=== PATIENT | female | born 1990 | race Two or more races ===

== ENCOUNTER 2018-02-13 13:27 | Inpatient (IN) | payer SELFPAY ==
[~2018-02-13] VITALS: Ht 152.4 cm; Wt 51.7 kg
--- NOTE | 2018-02-13 13:43 | Emergency Room Report ---
History of Present Illness General Chief Complaint: Abdominal Pain Source: Patient (Ramin Mascorro MD) Present Illness HPI Patient is a 27-year-old female who presented after increased epigastric abdominal pain since his morning. Patient reports having a prior history of gastritis. She reports having increased vomiting.She reports having a control implant. She denies any hematemesis or bloody stools. She reports having increased constipation.She denies recent alcohol use.The patient denies prior surgery.The patient is describes a burning sensation. (Ramin Mascorro MD) Allergies: Coded Allergies: No Known Allergies (Unverified , 02/13/18) Patient History Past Medical History: see triage record Now: No Reviewed Nursing Documentation: PMH: Agreed; PSxH: Agreed (Ramin Mascorro MD) Nursing Documentation-PMH Hx Gastrointestinal Problems: Yes - Gastritis (Ramin Mascorro MD) Review of Systems All Other Systems: negative except mentioned in HPI (Ramin Mascorro MD) Physical Exam Vital Signs Date Time Temp Pulse Resp B/P (MAP) Pulse Ox O2 Delivery O2 Flow Rate FiO2 02/13/18 13:31 97.5 72 20 121/76 98 Room Air Sp02 EP Interpretation: reviewed, normal General Appearance: normal inspection, alert, GCS 15, mild distress Head: atraumatic Eyes: bilateral eye PERRL ENT: normal ENT inspection, hearing grossly normal, normal voice Neck: normal inspection, full range of motion, supple, no bony tend Respiratory: normal inspection, lungs clear, normal breath sounds, no respiratory distress, no retraction, no wheezing Cardiovascular #1: regular rate, rhythm, no edema Gastrointestinal: normal inspection, normal bowel sounds, soft, no guarding, no hernia, tenderness - epigastric Genitourinary: no CVA tenderness Musculoskeletal: normal inspection, back normal, normal range of motion Neurologic: normal inspection, alert, responsive, speech normal Psychiatric: normal inspection, judgement/insight normal, mood/affect normal Skin: normal inspection, normal color, no rash (Ramin Mascorro MD) Medical Decision Making Diagnostic Impression: Primary Impression: Biliary colic Additional Impression: Cholelithiasis ER Course Patient presented for abdominal pain. Differential diagnoses included ischemic bowel, appendicitis, perforated viscus, abdominal aortic aneurysm, inferior myocardial infarction, viral gastroenteritis. Because of complexity of patient' s case laboratory testing and imaging studies were ordered. The patient endorsed Dr. Tuttle pending laboratory testing and further disposition. (Ramin Mascorro MD) ER Course This patient was turned over to me from Dr. Mascorro. Please see his full history and physical. Patient presents with epigastric pain, nausea and vomiting. She was pending ultrasound of the right upper quadrant and laboratory studies. She was found to have multiple gallstones but no evidence of cholecystitis. The patient's pain remained pain un-controlled. After discussion with the patient she was very uncomfortable trying to go home as she states that her pain is severe and are bearable. She is admitted for pain control and monitoring and possible evaluation by general surgery. Laboratory Tests Test 02/13/18 14:08 02/13/18 17:33 White Blood Count 15.9 K/UL (4.8-10.8) H Red Blood Count 5.49 M/UL (4.20-5.40) H Hemoglobin 15.9 G/DL (12.0-16.0) Hematocrit 47.5 % (37.0-47.0) H Mean Corpuscular Volume 87 FL (80-99) Mean Corpuscular Hemoglobin 29.1 PG (27.0-31.0) Mean Corpuscular Hemoglobin Concent 33.6 G/DL (32.0-36.0) Red Cell Distribution Width 10.7 % (11.6-14.8) L Platelet Count 255 K/UL (150-450) Mean Platelet Volume 7.6 FL (6.5-10.1) Neutrophils (%) (Auto) 84.1 % (45.0-75.0) H Lymphocytes (%) (Auto) 11.4 % (20.0-45.0) L Monocytes (%) (Auto) 3.8 % (1.0-10.0) Eosinophils (%) (Auto) 0.2 % (0.0-3.0) Basophils (%) (Auto) 0.6 % (0.0-2.0) Sodium Level 137 MMOL/L (136-145) Potassium Level 5.3 MMOL/L (3.5-5.1) H Chloride Level 102 MMOL/L (98-107) Carbon Dioxide Level 23 MMOL/L (21-32) Anion Gap 12 mmol/L (5-15) Blood Urea Nitrogen 11 mg/dL (7-18) Creatinine 0.7 MG/DL (0.55-1.30) Estimate Glomerular Filtration Rate > 60 mL/min (>60) Glucose Level 104 MG/DL (74-106) Calcium Level 9.6 MG/DL (8.5-10.1) Total Bilirubin 0.8 MG/DL (0.2-1.0) Aspartate Amino Transferase (AST) 42 U/L (15-37) H Alanine Aminotransferase (ALT) 28 U/L (12-78) Alkaline Phosphatase 84 U/L (46-116) Total Protein 9.0 G/DL (6.4-8.2) H Albumin 4.4 G/DL (3.4-5.0) Globulin 4.6 g/dL Albumin/Globulin Ratio 1.0 (1.0-2.7) Lipase 104 U/L (73-393) Human Chorionic Gonadotropin, Qual Negative (NEGATIVE) Urine Color Yellow Urine Appearance Slightly cloudy Urine pH 7 (4.5-8.0) Urine Specific [place] 1.015 (1.005-1.035) Urine Protein 2+ (NEGATIVE) H Urine Glucose (UA) Negative (NEGATIVE) Urine Ketones 4+ (NEGATIVE) H Urine Blood 1+ (NEGATIVE) H Urine Nitrite Negative (NEGATIVE) Urine Bilirubin Negative (NEGATIVE) Urine Urobilinogen Normal MG/DL (0.0-1.0) Urine Leukocyte Esterase 1+ (NEGATIVE) H Urine RBC Pending Urine WBC Pending Urine Squamous Epithelial Cells Pending Urine Bacteria Pending Urine HCG, Qualitative Negative (NEGATIVE) Urine Opiates Screen Positive (NEGATIVE) H Urine Barbiturates Screen Negative (NEGATIVE) Phencyclidine (PCP) Screen Negative (NEGATIVE) Urine Amphetamines Screen Negative (NEGATIVE) Urine Benzodiazepines Screen Negative (NEGATIVE) Urine Cocaine Screen Negative (NEGATIVE) Urine Marijuana (THC) Screen Positive (NEGATIVE) H ([facility]) Last Vital Signs Date Time Temp Pulse Resp B/P (MAP) Pulse Ox O2 Delivery O2 Flow Rate FiO2 02/13/18 13:31 97.5 72 20 121/76 98 Room Air (Ramin Mascorro MD) Disposition: ADMITTED INPATIENT Condition: Stable Ramin Mascorro MD Feb 13, 2018 13:43 [facility] Feb 13, 2018 18:42
[2018-02-13] MEDS ORDERED: Morphine Sulfate 4mg/ml Inj (IV/IM USE ONLY) IVP ONE (14:00)
[2018-02-13 14:20] LABS: BASOPHILS % (AUTO) 0.6 % (0.0-2.0); EOSINOPHILS % (AUTO) 0.2 % (0.0-3.0); HEMATOCRIT 47.5 % (37.0-47.0); HEMOGLOBIN 15.9 G/DL (12.0-16.0); LYMPHOCYTES % (AUTO) 11.4 % (20.0-45.0); MEAN CORPUSCULAR VOLUME 87 FL (80-99); MONOCYTES % (AUTO) 3.8 % (1.0-10.0); NEUTROPHILS % (AUTO) 84.1 % (45.0-75.0); PLATELET COUNT 255 K/UL (150-450); RED BLOOD COUNT 5.49 M/UL (4.20-5.40); RED CELL DISTRIBUTION WIDTH 10.7 % (11.6-14.8); WHITE BLOOD COUNT 15.9 K/UL (4.8-10.8)
[2018-02-13 14:26] LABS: ANION GAP 12 mmol/L (5-15); BLOOD UREA NITROGEN 11 mg/dL (7-18); CALCIUM 9.6 MG/DL (8.5-10.1); CARBON DIOXIDE 23 MMOL/L (21-32); CHLORIDE 102 MMOL/L (98-107); CREATININE 0.7 MG/DL (0.55-1.30); POTASSIUM 5.3 MMOL/L (3.5-5.1); SODIUM 137 MMOL/L (136-145)
[2018-02-13 14:32] LABS: ALANINE AMINOTRANSFERASE 28 U/L (12-78); ALBUMIN 4.4 G/DL (3.4-5.0); ALKALINE PHOSPHATASE 84 U/L (46-116); ASPARTATE AMINO TRANSFERASE 42 U/L (15-37); BILIRUBIN,TOTAL 0.8 MG/DL (0.2-1.0)
--- NOTE | 2018-02-13 15:06 | Diagnostic Imaging Report ---
Indication: Epigastric pain and vomiting Technique: Juarez-scale and duplex images of the upper abdomen were obtained. Doppler interrogation of the hepatic vessels Comparison: none Findings: Gallbladder demonstrates gallstones. No wall thickening or pericholecystic fluid. Sonographic Luna's sign is indeterminate due to pain being diffuse. Common bile duct measures 3 mm in diameter. No intrahepatic biliary ductal dilatation. Liver demonstrates normal echogenicity, no focal abnormality. Portal vein and hepatic veins are patent. Pancreas is unremarkable. Spleen is unremarkable. Left kidney measures 10.7 cm in length. Right kidney measures 10.5 cm length. Both kidneys demonstrate normal echogenicity. There is no hydronephrosis. No focal abnormality . Non-aneurysmal abdominal aorta . No free intraperitoneal fluid demonstrated Impression: Cholelithiasis Negative for dilated ducts or other acute or significant abnormality
[2018-02-13 15:43] VITALS: BP 121/76
[2018-02-13] MEDS ORDERED: Ketorolac 30mg Inj IV ONE (16:30)
--- NOTE | 2018-02-13 16:35 | Diagnostic Imaging Report ---
Indication: Increased epigastric abdominal pain since this morning, prior history of gastritis, increased vomiting Technique: Supine view of the abdomen Comparison: none Findings: Bowel gas pattern is unremarkable. No unusual masses or calcifications. Central metallic density presumably represents umbilical jewelry Impression: No acute process
[2018-02-13 17:48] VITALS: BP 115/72
[2018-02-13 18:24] LABS: APPEARANCE,URINE SLIGHTLY CLOUDY; BILIRUBIN, URINE NEGATIVE (NEGATIVE); GLUCOSE, URINE (UA) NEGATIVE (NEGATIVE); KETONES,URINE 4+ (NEGATIVE); LEUKOCYTE ESTERASE ,URINE 1+ (NEGATIVE); NITRITE,URINE NEGATIVE (NEGATIVE); PH,URINE 7 (4.5-8.0); PROTEIN,URINE 2+ (NEGATIVE); UROBILINOGEN,URINE NORMAL MG/DL (0.0-1.0)
[2018-02-13 18:26] LABS: COLOR,URINE YELLOW
[2018-02-13] MEDS ORDERED: PRILOSEC OTC20 MG ORAL (18:31)
[2018-02-13 18:47] VITALS: BP 107/61
[2018-02-13] MEDS ORDERED: ALKA-SELTZER O1 EAC1 PO (19:15)
[2018-02-13 19:33] VITALS: BP 103/69
[2018-02-13] MEDS ORDERED: Miralax 17gm pkt ORAL PRN (20:30)
[2018-02-13] MEDS ORDERED: Nitroglycerin Subl 0.4mg tab SL PRN (20:30)
[2018-02-13] MEDS ORDERED: Mylanta II UD 30ml ORAL PRN (20:30)
[2018-02-13] MEDS ORDERED: Morphine Sulfate 2mg/ml Inj IVP PRN (20:30)
[2018-02-13] MEDS ORDERED: LORazepam Inj 2mg/ml 1ml IV PRN (20:30)
[2018-02-13] MEDS ORDERED: Promethazine HCl 25 MG in NS 55 ML IV PRN (20:30)
[2018-02-13] MEDS ORDERED: Promethazine HCl 12.5 MG in NS 55 ML IV PRN (20:30)
[2018-02-13] MEDS: D5 1/2NS 1,000 ML IV SCH (21:39)
[2018-02-13] MEDS: Ketorolac 30mg Inj IV PRN (21:39)
[2018-02-13] MEDS: Heparin 5000 units/ml inj SUBQ SCH (21:46)
[2018-02-13 23:38] VITALS: BP 98/60
[2018-02-14] VITALS (13 sets, daily range): BP systolic 93–107; BP diastolic 50–63
[2018-02-14 06:41] LABS: HEMATOCRIT 39.8 % (37.0-47.0); HEMOGLOBIN 13.9 G/DL (12.0-16.0); MEAN CORPUSCULAR VOLUME 87 FL (80-99); PLATELET COUNT 217 K/UL (150-450); RED BLOOD COUNT 4.55 M/UL (4.20-5.40)
[2018-02-14 06:57] LABS: ALANINE AMINOTRANSFERASE 24 U/L (12-78); ALBUMIN 3.6 G/DL (3.4-5.0); ALBUMIN/GLOBULIN RATIO 0.9 (1.0-2.7); ALKALINE PHOSPHATASE 72 U/L (46-116); AMYLASE 33 U/L (25-115); ANION GAP 12 mmol/L (5-15); ASPARTATE AMINO TRANSFERASE 13 U/L (15-37); BILIRUBIN,TOTAL 1.1 MG/DL (0.2-1.0); BLOOD UREA NITROGEN 8 mg/dL (7-18); CALCIUM 8.8 MG/DL (8.5-10.1); CARBON DIOXIDE 22 MMOL/L (21-32); CHLORIDE 104 MMOL/L (98-107); CREATININE 0.7 MG/DL (0.55-1.30); SODIUM 138 MMOL/L (136-145)
[2018-02-14 06:58] LABS: BILIRUBIN,DIRECT 0.2 MG/DL (0.0-0.3)
[2018-02-14 07:01] LABS: WHITE BLOOD COUNT 23.9 K/UL (4.8-10.8)
[2018-02-14] MEDS: Heparin 5000 units/ml inj SUBQ SCH ×2 (08:33→20:34)
[2018-02-14] MEDS: Pantoprazole Inj IV SCH (09:30)
[2018-02-14] MEDS: cefTRIAXone 1 GM in D5W 55 ML IVPB SCH (09:30)
[2018-02-14] MEDS: D5 1/2NS 1,000 ML IV SCH ×2 (09:35→22:01)
[2018-02-14] MEDS ORDERED: Isovue-300 100ml vial INJ PRN (12:00)
--- NOTE | 2018-02-14 12:07 | Consultation ---
History of Present Illness General Date patient seen: Feb 14, 2018 Chief Complaint: Abdominal Pain Reason for Consultation: abdominal pain Present Illness HPI 27 year old female with no significant past medical history presented to ED with worsening abdominal pain and intermittent nausea. Patient states that holloween night she had In&Out prior to going to bed. Woke up the next morning with abdominal discomfort and went to work. Pain progressively worsened and associated with intermittent nausea but no emesis. Came to ED for evaluation. In ED noted to have leukocytosis and abdominal pain. Admitted for care and management. surgery called to evaluate. Pain described as generalized abdominal cramping that is 8/10 at max. normal bowel function. feels as if pain is "gas" at times. has been diagnosed with gastritis in past but does not take prescribed PPI. Has intermittent episodes of upper abdominal pain which she self treats with PPI/antacid temporarily. Does have history of biliary colic symptoms after fatty meals. ultrasound normal but does have cholelithiasis. hx of IUD placed in [facility]. +fevers Allergies: Coded Allergies: No Known Allergies (Unverified , 02/13/18) Medication History Scheduled Omeprazole Magnesium (Prilosec Otc), Unknown Dose ORAL DAILY, (Reported) Miscellaneous Medications Aspirin/Sod Bicarb/Citric Acid (Britta-Crabtree Original Tab Eff), 1 EACH PO, ( Reported) Patient History History Provided By: Patient, Medical Record Healthcare decision maker Resuscitation status Advanced Directive on File Past Medical/Surgical History Past Medical/Surgical History: (1) Abdominal pain (2) Cholelithiasis (3) Biliary colic (4) Gastritis Review of Systems All Other Systems: negative except mentioned in HPI Physical Exam General Appearance: no apparent distress, alert Lines, tubes and drains: peripheral HEENT: normocephalic, atraumatic Neck: supple, normal inspection Respiratory/Chest: normal breath sounds, no respiratory distress, no accessory muscle use Cardiovascular/Chest: normal peripheral pulses, normal rate Abdomen: normal bowel sounds, soft, no organomegaly, no mass, guarding, rebound , tender Extremities: normal inspection Skin Exam: warm/dry Neurologic: alert, oriented x 3 Last 24 Hour Vital Signs Date Time Temp Pulse Resp B/P (MAP) Pulse Ox O2 Delivery O2 Flow Rate FiO2 02/14/18 09:00 Room Air 02/14/18 08:00 98.7 80 21 102/60 (74) 95 02/14/18 06:00 99.1 82 18 95/63 (74) 100 02/14/18 04:07 100.0 02/14/18 04:07 100.0 02/14/18 03:37 101.3 104 18 100/60 (73) 100 02/13/18 23:38 99.7 78 18 98/60 (73) 100 02/13/18 23:10 Room Air 02/13/18 19:33 97.9 66 18 103/69 98 Room Air 02/13/18 18:47 96.5 74 19 107/61 97 Room Air 02/13/18 17:48 96.5 70 19 115/72 98 Room Air 02/13/18 16:59 97.6 02/13/18 15:43 97.6 68 20 121/76 98 Room Air 02/13/18 15:43 72 20 Room Air 02/13/18 14:53 97.6 02/13/18 13:31 97.5 72 20 121/76 98 Room Air Intake and Output 02/13/18 02/14/18 19:00 07:00 Intake Total 0 ml 600 ml Balance 0 ml 600 ml Intake Oral 0 ml Free Water 0 ml IV Total 0 ml 600 ml Tube Feeding 0 ml Blood Product 0 ml Other 0 ml # Voids 1 Laboratory Tests Test 02/13/18 14:08 02/13/18 17:33 02/14/18 05:10 White Blood Count 15.9 K/UL (4.8-10.8) H 23.9 K/UL (4.8-10.8) #*H Red Blood Count 5.49 M/UL (4.20-5.40) H 4.55 M/UL (4.20-5.40) Hemoglobin 15.9 G/DL (12.0-16.0) 13.9 G/DL (12.0-16.0) Hematocrit 47.5 % (37.0-47.0) H 39.8 % (37.0-47.0) Mean Corpuscular Volume 87 FL (80-99) 87 FL (80-99) Mean Corpuscular Hemoglobin 29.1 PG (27.0-31.0) 30.5 PG (27.0-31.0) Mean Corpuscular Hemoglobin Concent 33.6 G/DL (32.0-36.0) 34.9 G/DL (32.0-36.0) Red Cell Distribution Width 10.7 % (11.6-14.8) L 11.0 % (11.6-14.8) L Platelet Count 255 K/UL (150-450) 217 K/UL (150-450) Mean Platelet Volume 7.6 FL (6.5-10.1) 7.9 FL (6.5-10.1) Neutrophils (%) (Auto) 84.1 % (45.0-75.0) H % (45.0-75.0) Lymphocytes (%) (Auto) 11.4 % (20.0-45.0) L % (20.0-45.0) Monocytes (%) (Auto) 3.8 % (1.0-10.0) % (1.0-10.0) Eosinophils (%) (Auto) 0.2 % (0.0-3.0) % (0.0-3.0) Basophils (%) (Auto) 0.6 % (0.0-2.0) % (0.0-2.0) Sodium Level 137 MMOL/L (136-145) 138 MMOL/L (136-145) Potassium Level 5.3 MMOL/L (3.5-5.1) H 3.0 MMOL/L (3.5-5.1) L Chloride Level 102 MMOL/L (98-107) 104 MMOL/L (98-107) Carbon Dioxide Level 23 MMOL/L (21-32) 22 MMOL/L (21-32) Anion Gap 12 mmol/L (5-15) 12 mmol/L (5-15) Blood Urea Nitrogen 11 mg/dL (7-18) 8 mg/dL (7-18) Creatinine 0.7 MG/DL (0.55-1.30) 0.7 MG/DL (0.55-1.30) Estimat Glomerular Filtration Rate > 60 mL/min (>60) > 60 mL/min (>60) Glucose Level 104 MG/DL (74-106) 120 MG/DL (74-106) H Calcium Level 9.6 MG/DL (8.5-10.1) 8.8 MG/DL (8.5-10.1) Total Bilirubin 0.8 MG/DL (0.2-1.0) 1.1 MG/DL (0.2-1.0) H Aspartate Amino Transf (AST/SGOT) 42 U/L (15-37) H 13 U/L (15-37) L Alanine Aminotransferase (ALT/SGPT) 28 U/L (12-78) 24 U/L (12-78) Alkaline Phosphatase 84 U/L (46-116) 72 U/L (46-116) Total Protein 9.0 G/DL (6.4-8.2) H 7.4 G/DL (6.4-8.2) Albumin 4.4 G/DL (3.4-5.0) 3.6 G/DL (3.4-5.0) Globulin 4.6 g/dL 3.8 g/dL Albumin/Globulin Ratio 1.0 (1.0-2.7) 0.9 (1.0-2.7) L Lipase 104 U/L (73-393) 95 U/L (73-393) Human Chorionic Gonadotropin, Qual Negative (NEGATIVE) Urine Color Yellow Urine Appearance Slightly cloudy Urine pH 7 (4.5-8.0) Urine Specific [place] 1.015 (1.005-1.035) Urine Protein 2+ (NEGATIVE) H Urine Glucose (UA) Negative (NEGATIVE) Urine Ketones 4+ (NEGATIVE) H Urine Blood 1+ (NEGATIVE) H Urine Nitrite Negative (NEGATIVE) Urine Bilirubin Negative (NEGATIVE) Urine Urobilinogen Normal MG/DL (0.0-1.0) Urine Leukocyte Esterase 1+ (NEGATIVE) H Urine RBC 0-2 /HPF (0 - 2) Urine WBC 0-2 /HPF (0 - 2) Urine Squamous Epithelial Cells Few /LPF (NONE/OCC) Urine Bacteria Few /HPF (NONE) Urine Mucus Many /LPF (NONE/OCC) H Urine HCG, Qualitative Negative (NEGATIVE) Urine Opiates Screen Positive (NEGATIVE) H Urine Barbiturates Screen Negative (NEGATIVE) Phencyclidine (PCP) Screen Negative (NEGATIVE) Urine Amphetamines Screen Negative (NEGATIVE) Urine Benzodiazepines Screen Negative (NEGATIVE) Urine Cocaine Screen Negative (NEGATIVE) Urine Marijuana (THC) Screen Positive (NEGATIVE) H Differential Total Cells Counted 100 Neutrophils % (Manual) 86 % (45-75) H Lymphocytes % (Manual) 3 % (20-45) L Monocytes % (Manual) 11 % (1-10) H Eosinophils % (Manual) 0 % (0-3) Basophils % (Manual) 0 % (0-2) Band Neutrophils 0 % (0-8) Platelet Estimate Adequate Platelet Morphology Normal Red Blood Cell Morphology Normal Activated Partial Thromboplast Time 33 SEC (23-33) Direct Bilirubin 0.2 MG/DL (0.0-0.3) Amylase Level 33 U/L (25-115) Height (Feet): 5 Height (Inches): 0.00 Weight (Pounds): 114 Medications Current Medications Medications (Trade) Dose Ordered Sig/Marina Route PRN Reason Start Time Stop Time Status Last Admin Dose Admin Acetaminophen (Tylenol) 650 mg Q4H PRN ORAL fever 02/13/18 20:30 03/15/18 20:29 02/14/18 03:37 Al Hydroxide/Mg Hydroxide (Mylanta II) 30 ml Q6H PRN ORAL dyspepsia 02/13/18 20:30 03/15/18 20:29 Barium Sulfate (Readi-Cat 2) 450 ml NOW PRN ORAL Radiology Procedure 02/14/18 12:00 02/16/18 11:52 Ceftriaxone Sodium 1 gm/ Dextrose 55 ml @ 110 mls/hr Q24H IVPB 02/14/18 09:00 02/21/18 08:59 02/14/18 09:30 Dextrose (Dextrose 50%) 25 ml Q30M PRN IV Hypoglycemia 02/13/18 20:30 03/15/18 20:29 Dextrose (Dextrose 50%) 50 ml Q30M PRN IV Hypoglycemia 02/13/18 20:30 03/15/18 20:29 Dextrose/Sodium Chloride 1,000 ml @ 75 mls/hr [id number] IV 02/13/18 20:20 03/15/18 20:19 02/14/18 09:35 Diphenhydramine HCl (Benadryl) 25 mg Q6H PRN ORAL Itching/Pruritis 02/13/18 20:30 03/15/18 20:29 Heparin Sodium (Porcine) (Heparin 5000 units/ml) 5,000 units EVERY 12 HOURS SUBQ 02/13/18 21:00 03/15/18 20:59 02/14/18 08:33 Iopamidol (Isovue-300 100ml) 100 ml NOW PRN INJ Radiology Procedure 02/14/18 12:00 02/16/18 23:59 Ketorolac Tromethamine (Toradol 30mg) 30 mg Q8H PRN IV Moderate Pain 4 to 6 02/13/18 21:30 02/18/18 21:29 02/13/18 21:39 Lorazepam (Ativan 2mg/ml 1ml) 1 mg Q4H PRN IV agitation 02/13/18 20:30 02/20/18 20:29 Metoclopramide HCl (Reglan) 10 mg Q6H PRN IVP severe nausea 02/13/18 20:30 03/15/18 20:29 Morphine Sulfate (Morphine Sulfate) 2 mg Q4H PRN IVP severe Pain (Pain Scale 7-10) 02/13/18 20:30 02/20/18 20:29 Nitroglycerin (Ntg) 0.4 mg Q5M X 3 DOSES PRN SL Prn Chest Pain 02/13/18 20:30 03/15/18 20:29 Ondansetron HCl (Zofran) 4 mg Q6H PRN IVP Nausea & Vomiting 02/13/18 20:30 03/15/18 20:29 Pantoprazole (Protonix) 40 mg DAILY IV 02/14/18 09:00 03/16/18 08:59 02/14/18 09:30 Polyethylene Glycol (Miralax) 17 gm HSPRN PRN ORAL Constipation 02/13/18 20:30 03/15/18 20:29 Potassium Chloride (K-Dur) 40 meq ONCE ORAL 02/14/18 11:00 02/14/18 12:30 02/14/18 11:47 Promethazine HCl (Phenergan) 12.5 mg Q6H PRN IM refractory nausea/vomiting 02/13/18 21:30 03/15/18 21:29 Temazepam (Restoril) 15 mg HSPRN PRN ORAL Insomnia 02/13/18 20:30 02/20/18 20:29 Assessment/Plan Problem List: (1) Abdominal pain Assessment & Plan: abdominal pain; generalized; sometimes upper abdomen; on exam tender in umbilical region. 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 no uti -NPO -IV fluids -IV ABx -STAT CT A/P ICD Codes: R10.9 - Unspecified abdominal pain SNOMED: [id number] Qualifiers: Qualified Codes: R10.84 - Generalized abdominal pain Ti Elam Feb 14, 2018 12:07
--- NOTE | 2018-02-14 12:09 | Consultation ---
History of Present Illness General Date patient seen: Feb 14, 2018 Chief Complaint: Abdominal Pain Present Illness HPI 27-year-old female without PMHx with recent control implant presented to ER with CC of epigastric abdominal pain and increased vomiting. She denies any hematemesis or bloody stools. She had leukocytosis and admitted for further management. Allergies: Coded Allergies: No Known Allergies (Unverified , 02/13/18) Medication History Scheduled Omeprazole Magnesium (Prilosec Otc), Unknown Dose ORAL DAILY, (Reported) Miscellaneous Medications Aspirin/Sod Bicarb/Citric Acid ([place] Original Tab Eff), 1 EACH PO, ( Reported) Patient History Healthcare decision maker Resuscitation status Advanced Directive on File Past Medical/Surgical History Past Medical/Surgical History: (1) Gastritis Review of Systems All Other Systems: negative except mentioned in HPI Physical Exam General Appearance: WD/WN Lines, tubes and drains: peripheral HEENT: normocephalic Neck: non-tender Respiratory/Chest: chest wall non-tender Breasts: no masses Cardiovascular/Chest: normal peripheral pulses, regular rhythm Abdomen: normal bowel sounds Genitourinary/Rectal: normal genital exam Last 24 Hour Vital Signs Date Time Temp Pulse Resp B/P (MAP) Pulse Ox O2 Delivery O2 Flow Rate FiO2 02/14/18 12:00 98.4 94 22 107/56 (73) 99 02/14/18 09:00 Room Air 02/14/18 08:00 98.7 80 21 102/60 (74) 95 02/14/18 06:00 99.1 82 18 95/63 (74) 100 02/14/18 04:07 100.0 02/14/18 04:07 100.0 02/14/18 03:37 101.3 104 18 100/60 (73) 100 02/13/18 23:38 99.7 78 18 98/60 (73) 100 02/13/18 23:10 Room Air 02/13/18 19:33 97.9 66 18 103/69 98 Room Air 02/13/18 18:47 96.5 74 19 107/61 97 Room Air 02/13/18 17:48 96.5 70 19 115/72 98 Room Air 02/13/18 16:59 97.6 02/13/18 15:43 97.6 68 20 121/76 98 Room Air 02/13/18 15:43 72 20 Room Air 02/13/18 14:53 97.6 02/13/18 13:31 97.5 72 20 121/76 98 Room Air Intake and Output 02/13/18 02/14/18 19:00 07:00 Intake Total 0 ml 600 ml Balance 0 ml 600 ml Intake Oral 0 ml Free Water 0 ml IV Total 0 ml 600 ml Tube Feeding 0 ml Blood Product 0 ml Other 0 ml # Voids 1 Laboratory Tests Test 02/13/18 14:08 02/13/18 17:33 02/14/18 05:10 White Blood Count 15.9 K/UL (4.8-10.8) H 23.9 K/UL (4.8-10.8) #*H Red Blood Count 5.49 M/UL (4.20-5.40) H 4.55 M/UL (4.20-5.40) Hemoglobin 15.9 G/DL (12.0-16.0) 13.9 G/DL (12.0-16.0) Hematocrit 47.5 % (37.0-47.0) H 39.8 % (37.0-47.0) Mean Corpuscular Volume 87 FL (80-99) 87 FL (80-99) Mean Corpuscular Hemoglobin 29.1 PG (27.0-31.0) 30.5 PG (27.0-31.0) Mean Corpuscular Hemoglobin Concent 33.6 G/DL (32.0-36.0) 34.9 G/DL (32.0-36.0) Red Cell Distribution Width 10.7 % (11.6-14.8) L 11.0 % (11.6-14.8) L Platelet Count 255 K/UL (150-450) 217 K/UL (150-450) Mean Platelet Volume 7.6 FL (6.5-10.1) 7.9 FL (6.5-10.1) Neutrophils (%) (Auto) 84.1 % (45.0-75.0) H % (45.0-75.0) Lymphocytes (%) (Auto) 11.4 % (20.0-45.0) L % (20.0-45.0) Monocytes (%) (Auto) 3.8 % (1.0-10.0) % (1.0-10.0) Eosinophils (%) (Auto) 0.2 % (0.0-3.0) % (0.0-3.0) Basophils (%) (Auto) 0.6 % (0.0-2.0) % (0.0-2.0) Sodium Level 137 MMOL/L (136-145) 138 MMOL/L (136-145) Potassium Level 5.3 MMOL/L (3.5-5.1) H 3.0 MMOL/L (3.5-5.1) L Chloride Level 102 MMOL/L (98-107) 104 MMOL/L (98-107) Carbon Dioxide Level 23 MMOL/L (21-32) 22 MMOL/L (21-32) Anion Gap 12 mmol/L (5-15) 12 mmol/L (5-15) Blood Urea Nitrogen 11 mg/dL (7-18) 8 mg/dL (7-18) Creatinine 0.7 MG/DL (0.55-1.30) 0.7 MG/DL (0.55-1.30) Estimat Glomerular Filtration Rate > 60 mL/min (>60) > 60 mL/min (>60) Glucose Level 104 MG/DL (74-106) 120 MG/DL (74-106) H Calcium Level 9.6 MG/DL (8.5-10.1) 8.8 MG/DL (8.5-10.1) Total Bilirubin 0.8 MG/DL (0.2-1.0) 1.1 MG/DL (0.2-1.0) H Aspartate Amino Transf (AST/SGOT) 42 U/L (15-37) H 13 U/L (15-37) L Alanine Aminotransferase (ALT/SGPT) 28 U/L (12-78) 24 U/L (12-78) Alkaline Phosphatase 84 U/L (46-116) 72 U/L (46-116) Total Protein 9.0 G/DL (6.4-8.2) H 7.4 G/DL (6.4-8.2) Albumin 4.4 G/DL (3.4-5.0) 3.6 G/DL (3.4-5.0) Globulin 4.6 g/dL 3.8 g/dL Albumin/Globulin Ratio 1.0 (1.0-2.7) 0.9 (1.0-2.7) L Lipase 104 U/L (73-393) 95 U/L (73-393) Human Chorionic Gonadotropin, Qual Negative (NEGATIVE) Urine Color Yellow Urine Appearance Slightly cloudy Urine pH 7 (4.5-8.0) Urine Specific [place] 1.015 (1.005-1.035) Urine Protein 2+ (NEGATIVE) H Urine Glucose (UA) Negative (NEGATIVE) Urine Ketones 4+ (NEGATIVE) H Urine Blood 1+ (NEGATIVE) H Urine Nitrite Negative (NEGATIVE) Urine Bilirubin Negative (NEGATIVE) Urine Urobilinogen Normal MG/DL (0.0-1.0) Urine Leukocyte Esterase 1+ (NEGATIVE) H Urine RBC 0-2 /HPF (0 - 2) Urine WBC 0-2 /HPF (0 - 2) Urine Squamous Epithelial Cells Few /LPF (NONE/OCC) Urine Bacteria Few /HPF (NONE) Urine Mucus Many /LPF (NONE/OCC) H Urine HCG, Qualitative Negative (NEGATIVE) Urine Opiates Screen Positive (NEGATIVE) H Urine Barbiturates Screen Negative (NEGATIVE) Phencyclidine (PCP) Screen Negative (NEGATIVE) Urine Amphetamines Screen Negative (NEGATIVE) Urine Benzodiazepines Screen Negative (NEGATIVE) Urine Cocaine Screen Negative (NEGATIVE) Urine Marijuana (THC) Screen Positive (NEGATIVE) H Differential Total Cells Counted 100 Neutrophils % (Manual) 86 % (45-75) H Lymphocytes % (Manual) 3 % (20-45) L Monocytes % (Manual) 11 % (1-10) H Eosinophils % (Manual) 0 % (0-3) Basophils % (Manual) 0 % (0-2) Band Neutrophils 0 % (0-8) Platelet Estimate Adequate Platelet Morphology Normal Red Blood Cell Morphology Normal Activated Partial Thromboplast Time 33 SEC (23-33) Direct Bilirubin 0.2 MG/DL (0.0-0.3) Amylase Level 33 U/L (25-115) Height (Feet): 5 Height (Inches): 0.00 Weight (Pounds): 114 Medications Current Medications Medications (Trade) Dose Ordered Sig/Marina Route PRN Reason Start Time Stop Time Status Last Admin Dose Admin Acetaminophen (Tylenol) 650 mg Q4H PRN ORAL fever 02/13/18 20:30 12/1/18 20:29 02/14/18 03:37 Al Hydroxide/Mg Hydroxide (Mylanta II) 30 ml Q6H PRN ORAL dyspepsia 02/13/18 20:30 03/15/18 20:29 Barium Sulfate (Readi-Cat 2) 450 ml NOW PRN ORAL Radiology Procedure 02/14/18 12:00 02/16/18 11:52 Ceftriaxone Sodium 1 gm/ Dextrose 55 ml @ 110 mls/hr Q24H IVPB 02/14/18 09:00 02/21/18 08:59 02/14/18 09:30 Dextrose (Dextrose 50%) 25 ml Q30M PRN IV Hypoglycemia 02/13/18 20:30 03/15/18 20:29 Dextrose (Dextrose 50%) 50 ml Q30M PRN IV Hypoglycemia 02/13/18 20:30 03/15/18 20:29 Dextrose/Sodium Chloride 1,000 ml @ 75 mls/hr [id number] IV 02/13/18 20:20 03/15/18 20:19 02/14/18 09:35 Diphenhydramine HCl (Benadryl) 25 mg Q6H PRN ORAL Itching/Pruritis 02/13/18 20:30 03/15/18 20:29 Heparin Sodium (Porcine) (Heparin 5000 units/ml) 5,000 units EVERY 12 HOURS SUBQ 02/13/18 21:00 03/15/18 20:59 02/14/18 08:33 Iopamidol (Isovue-300 100ml) 100 ml NOW PRN INJ Radiology Procedure 02/14/18 12:00 02/16/18 23:59 Ketorolac Tromethamine (Toradol 30mg) 30 mg Q8H PRN IV Moderate Pain 4 to 6 02/13/18 21:30 02/18/18 21:29 02/13/18 21:39 Lorazepam (Ativan 2mg/ml 1ml) 1 mg Q4H PRN IV agitation 02/13/18 20:30 02/20/18 20:29 Metoclopramide HCl (Reglan) 10 mg Q6H PRN IVP severe nausea 02/13/18 20:30 03/15/18 20:29 Morphine Sulfate (Morphine Sulfate) 2 mg Q4H PRN IVP severe Pain (Pain Scale 7-10) 02/13/18 20:30 02/20/18 20:29 Nitroglycerin (Ntg) 0.4 mg Q5M X 3 DOSES PRN SL Prn Chest Pain 02/13/18 20:30 03/15/18 20:29 Ondansetron HCl (Zofran) 4 mg Q6H PRN IVP Nausea & Vomiting 02/13/18 20:30 03/15/18 20:29 Pantoprazole (Protonix) 40 mg DAILY IV 02/14/18 09:00 03/16/18 08:59 02/14/18 09:30 Polyethylene Glycol (Miralax) 17 gm HSPRN PRN ORAL Constipation 02/13/18 20:30 03/15/18 20:29 Potassium Chloride (K-Dur) 40 meq ONCE ORAL 02/14/18 11:00 02/14/18 12:30 02/14/18 11:47 Promethazine HCl (Phenergan) 12.5 mg Q6H PRN IM refractory nausea/vomiting 02/13/18 21:30 03/15/18 21:29 Temazepam (Restoril) 15 mg HSPRN PRN ORAL Insomnia 02/13/18 20:30 02/20/18 20:29 Assessment/Plan Problem List: (1) Sepsis ICD Codes: A41.9 - Sepsis, unspecified organism SNOMED: 80702749 (2) Biliary colic ICD Codes: K80.50 - Calculus of bile duct without cholangitis or cholecystitis without obstruction SNOMED: 93902476 (3) Abdominal pain ICD Codes: R10.9 - Unspecified abdominal pain SNOMED: 49120390 Qualifiers: Qualified Codes: R10.84 - Generalized abdominal pain Assessment/Plan NPO IV fluids IV abx check blood cultures symptomatic treatment check electrolytes Slick Pablo MD Feb 14, 2018 12:09
[2018-02-14] MEDS: Ketorolac 30mg Inj IV PRN (12:15)
--- NOTE | 2018-02-14 12:58 | Diagnostic Imaging Report ---
Indication: Cough Comparison: None A single view chest radiograph was obtained. Findings: Cardiomediastinal appearance is within normal limits for age. The lungs are clear. Pulmonary vascularity is appropriate. The diaphragmatic contour is smooth and costophrenic angles are sharp. No pleural effusions are identified. The bones are unremarkable. Impression: No acute findings
[2018-02-14] MEDS ORDERED: Vancomycin 1gm/D5W 275ml IVPB ONE ×2 (13:30)
--- NOTE | 2018-02-14 14:02 | GI Initial Consult Note ---
History of Present Illness General Date patient seen: Feb 14, 2018 Time patient seen: 13:47 Reason for Hospitalization: Abdominal Pain Referring physician: RE BRAXTON Reason for Consultation: abdominal pain Present Illness HPI 27 year old female with no significant past medical history presented to ED with worsening abdominal pain and intermittent nausea. Patient states that Halloween night she had In&Out prior to going to bed. Woke up the next morning with abdominal discomfort and went to work. Pain progressively worsened and associated with intermittent nausea but no emesis. Came to ED for evaluation. In ED noted to have leukocytosis and abdominal pain. Pain described as generalized abdominal cramping that is 8/10 at max. normal bowel function. feels as if pain is "gas" at times. has been diagnosed with gastritis in past but does not take prescribed PPI. Has intermittent episodes of upper abdominal pain which she self treats with PPI/antacid temporarily. Does have history of biliary colic symptoms after fatty meals. ultrasound normal but does have cholelithiasis. GI consulted for abdominal pain. Pt seen, awake A&Ox4 c/o of epigastric abdominal pain. Presents with leukocytosis. No anemia. LFTs normal. US shows cholelithiasis but no biliary obstruction. KUB negative. No history endoscopy / colonoscopy. Home Meds Reported Medications Aspirin/Sod Bicarb/Citric Acid (MICHAEL-[place] ORIGINAL TAB EFF) 1 Each Tablet.eff , 1 EACH PO, TAB 02/13/18 Omeprazole Magnesium (PRILOSEC OTC) 20 Mg Tablet.dr, ORAL DAILY, TAB 02/13/18 Med list reviewed/reconciled: Yes Allergies: Coded Allergies: No Known Allergies (Unverified , 02/13/18) Patient History History Provided By: Patient, Medical Record PMH Narrative Patient History Past Medical History: see triage record Now: No Reviewed Nursing Documentation: PMH: Agreed; PSxH: Agreed Nursing Documentation-PMH Hx Gastrointestinal Problems: Yes - Gastritis Social History: Denies: smoking, alcohol use, drug use, other Review of Systems All Other Systems: negative except mentioned in HPI Physical Exam Vital Signs Date Time Temp Pulse Resp B/P (MAP) Pulse Ox O2 Delivery O2 Flow Rate FiO2 02/13/18 13:31 97.5 72 20 121/76 98 Room Air Sp02 EP Interpretation: reviewed, normal Labs Laboratory Tests Test 11/1/18 14:08 02/13/18 17:33 02/14/18 05:10 White Blood Count 15.9 K/UL (4.8-10.8) H 23.9 K/UL (4.8-10.8) #*H Red Blood Count 5.49 M/UL (4.20-5.40) H 4.55 M/UL (4.20-5.40) Hemoglobin 15.9 G/DL (12.0-16.0) 13.9 G/DL (12.0-16.0) Hematocrit 47.5 % (37.0-47.0) H 39.8 % (37.0-47.0) Mean Corpuscular Volume 87 FL (80-99) 87 FL (80-99) Mean Corpuscular Hemoglobin 29.1 PG (27.0-31.0) 30.5 PG (27.0-31.0) Mean Corpuscular Hemoglobin Concent 33.6 G/DL (32.0-36.0) 34.9 G/DL (32.0-36.0) Red Cell Distribution Width 10.7 % (11.6-14.8) L 11.0 % (11.6-14.8) L Platelet Count 255 K/UL (150-450) 217 K/UL (150-450) Mean Platelet Volume 7.6 FL (6.5-10.1) 7.9 FL (6.5-10.1) Neutrophils (%) (Auto) 84.1 % (45.0-75.0) H % (45.0-75.0) Lymphocytes (%) (Auto) 11.4 % (20.0-45.0) L % (20.0-45.0) Monocytes (%) (Auto) 3.8 % (1.0-10.0) % (1.0-10.0) Eosinophils (%) (Auto) 0.2 % (0.0-3.0) % (0.0-3.0) Basophils (%) (Auto) 0.6 % (0.0-2.0) % (0.0-2.0) Sodium Level 137 MMOL/L (136-145) 138 MMOL/L (136-145) Potassium Level 5.3 MMOL/L (3.5-5.1) H 3.0 MMOL/L (3.5-5.1) L Chloride Level 102 MMOL/L (98-107) 104 MMOL/L (98-107) Carbon Dioxide Level 23 MMOL/L (21-32) 22 MMOL/L (21-32) Anion Gap 12 mmol/L (5-15) 12 mmol/L (5-15) Blood Urea Nitrogen 11 mg/dL (7-18) 8 mg/dL (7-18) Creatinine 0.7 MG/DL (0.55-1.30) 0.7 MG/DL (0.55-1.30) Estimat Glomerular Filtration Rate > 60 mL/min (>60) > 60 mL/min (>60) Glucose Level 104 MG/DL (74-106) 120 MG/DL (74-106) H Calcium Level 9.6 MG/DL (8.5-10.1) 8.8 MG/DL (8.5-10.1) Total Bilirubin 0.8 MG/DL (0.2-1.0) 1.1 MG/DL (0.2-1.0) H Aspartate Amino Transf (AST/SGOT) 42 U/L (15-37) H 13 U/L (15-37) L Alanine Aminotransferase (ALT/SGPT) 28 U/L (12-78) 24 U/L (12-78) Alkaline Phosphatase 84 U/L (46-116) 72 U/L (46-116) Total Protein 9.0 G/DL (6.4-8.2) H 7.4 G/DL (6.4-8.2) Albumin 4.4 G/DL (3.4-5.0) 3.6 G/DL (3.4-5.0) Globulin 4.6 g/dL 3.8 g/dL Albumin/Globulin Ratio 1.0 (1.0-2.7) 0.9 (1.0-2.7) L Lipase 104 U/L (73-393) 95 U/L (73-393) Human Chorionic Gonadotropin, Qual Negative (NEGATIVE) Urine Color Yellow Urine Appearance Slightly cloudy Urine pH 7 (4.5-8.0) Urine Specific [place] 1.015 (1.005-1.035) Urine Protein 2+ (NEGATIVE) H Urine Glucose (UA) Negative (NEGATIVE) Urine Ketones 4+ (NEGATIVE) H Urine Blood 1+ (NEGATIVE) H Urine Nitrite Negative (NEGATIVE) Urine Bilirubin Negative (NEGATIVE) Urine Urobilinogen Normal MG/DL (0.0-1.0) Urine Leukocyte Esterase 1+ (NEGATIVE) H Urine RBC 0-2 /HPF (0 - 2) Urine WBC 0-2 /HPF (0 - 2) Urine Squamous Epithelial Cells Few /LPF (NONE/OCC) Urine Bacteria Few /HPF (NONE) Urine Mucus Many /LPF (NONE/OCC) H Urine HCG, Qualitative Negative (NEGATIVE) Urine Opiates Screen Positive (NEGATIVE) H Urine Barbiturates Screen Negative (NEGATIVE) Phencyclidine (PCP) Screen Negative (NEGATIVE) Urine Amphetamines Screen Negative (NEGATIVE) Urine Benzodiazepines Screen Negative (NEGATIVE) Urine Cocaine Screen Negative (NEGATIVE) Urine Marijuana (THC) Screen Positive (NEGATIVE) H Differential Total Cells Counted 100 Neutrophils % (Manual) 86 % (45-75) H Lymphocytes % (Manual) 3 % (20-45) L Monocytes % (Manual) 11 % (1-10) H Eosinophils % (Manual) 0 % (0-3) Basophils % (Manual) 0 % (0-2) Band Neutrophils 0 % (0-8) Platelet Estimate Adequate Platelet Morphology Normal Red Blood Cell Morphology Normal Activated Partial Thromboplast Time 33 SEC (23-33) Direct Bilirubin 0.2 MG/DL (0.0-0.3) Amylase Level 33 U/L (25-115) General Appearance: well appearing, no apparent distress, alert Head: normocephalic EENT: PERRL/EOMI, normal ENT inspection Neck: supple Respiratory: normal breath sounds, no respiratory distress Cardiovascular: normal rate Gastrointestinal: normal inspection, non tender, soft, normal bowel sounds, non -distended Rectal: deferred Genitourinary: no CVA tenderness Musculoskeletal: normal inspection, back normal Neurologic: normal inspection, alert, oriented x3, responsive Psychiatric: normal inspection, judgement/insight normal, memory normal Skin: normal inspection, normal color, no rash, warm/dry, palpation normal, well hydrated Lymphatic: normal inspection, no adenopathy Current Medications Current Medications Medications (Trade) Dose Ordered Sig/Marina Route PRN Reason Start Time Stop Time Status Last Admin Dose Admin Acetaminophen (Tylenol) 650 mg Q4H PRN ORAL fever 02/13/18 20:30 03/15/18 20:29 02/14/18 03:37 Al Hydroxide/Mg Hydroxide (Mylanta II) 30 ml Q6H PRN ORAL dyspepsia 02/13/18 20:30 03/15/18 20:29 Barium Sulfate (Readi-Cat 2) 450 ml NOW PRN ORAL Radiology Procedure 02/14/18 12:00 02/16/18 11:52 Ceftriaxone Sodium 1 gm/ Dextrose 55 ml @ 110 mls/hr Q24H IVPB 02/14/18 09:00 02/21/18 08:59 02/14/18 09:30 Dextrose (Dextrose 50%) 25 ml Q30M PRN IV Hypoglycemia 02/13/18 20:30 03/15/18 20:29 Dextrose (Dextrose 50%) 50 ml Q30M PRN IV Hypoglycemia 02/13/18 20:30 03/15/18 20:29 Dextrose/Sodium Chloride 1,000 ml @ 75 mls/hr [id number] IV 02/13/18 20:20 03/15/18 20:19 02/14/18 09:35 Diphenhydramine HCl (Benadryl) 25 mg Q6H PRN ORAL Itching/Pruritis 02/13/18 20:30 03/15/18 20:29 Heparin Sodium (Porcine) (Heparin 5000 units/ml) 5,000 units EVERY 12 HOURS SUBQ 02/13/18 21:00 03/15/18 20:59 02/14/18 08:33 Iopamidol (Isovue-300 100ml) 100 ml NOW PRN INJ Radiology Procedure 02/14/18 12:00 02/16/18 23:59 Ketorolac Tromethamine (Toradol 30mg) 30 mg Q8H PRN IV Moderate Pain 4 to 6 02/13/18 21:30 02/18/18 21:29 02/14/18 12:15 Lorazepam (Ativan 2mg/ml 1ml) 1 mg Q4H PRN IV agitation 02/13/18 20:30 02/20/18 20:29 Metoclopramide HCl (Reglan) 10 mg Q6H PRN IVP severe nausea 02/13/18 20:30 03/15/18 20:29 Morphine Sulfate (Morphine Sulfate) 2 mg Q4H PRN IVP severe Pain (Pain Scale 7-10) 02/13/18 20:30 02/20/18 20:29 Nitroglycerin (Ntg) 0.4 mg Q5M X 3 DOSES PRN SL Prn Chest Pain 02/13/18 20:30 03/15/18 20:29 Ondansetron HCl (Zofran) 4 mg Q6H PRN IVP Nausea & Vomiting 02/13/18 20:30 03/15/18 20:29 Pantoprazole (Protonix) 40 mg DAILY IV 02/14/18 09:00 03/16/18 08:59 02/14/18 09:30 Polyethylene Glycol (Miralax) 17 gm HSPRN PRN ORAL Constipation 02/13/18 20:30 03/15/18 20:29 Promethazine HCl (Phenergan) 12.5 mg Q6H PRN IM refractory nausea/vomiting 02/13/18 21:30 03/15/18 21:29 Temazepam (Restoril) 15 mg HSPRN PRN ORAL Insomnia 02/13/18 20:30 02/20/18 20:29 Vancomycin HCl (Vanco rx to dose) 1 ea DAILY PRN MISC Per rx protocol 02/14/18 12:15 03/16/18 12:14 Vancomycin HCl 1 gm/Dextrose 275 ml @ 183.708 mls/hr ONCE ONCE IVPB 02/14/18 13:30 02/14/18 14:59 02/14/18 13:31 Vancomycin/Sodium Chloride 250 ml @ 166.667 mls/hr Q12HR IVPB 02/14/18 21:00 02/19/18 20:59 GI: Plan Problems: (1) Biliary colic (2) Cholelithiasis (3) Sepsis (4) Abdominal pain (5) Gastritis Plan KUB negative abdominal US reviewed >> cholelithiasis Utox >> positive Marijuana fu surgical recs, pending stat CT maintain NPO + IVFs pain mgmt ppi electrolyte correction fu labs Discussed with Dr. Mirza. Thank you for this patient referral, we will follow. The patient was seen and examined at bedside and all new and available data was reviewed in the patients chart. I agree with the above findings, impression and plan. (Patient seen earlier today. Signature stamp does not reflect patient encounter time.). - MD Guerita Ireland,[facility] HospitalZelalem TIME STUDY CLERK Feb 14, 2018 14:02
--- NOTE | 2018-02-14 15:02 | Diagnostic Imaging Report ---
Indication: Abdominal pain Technique: Continuous helical transaxial imaging of the abdomen and pelvis was obtained from the lung bases to the pubic symphysis during intravenous contrast administration. Coronal 2-D reformats were also obtained. Study obtained in a Siemens sensation [address] Automatic Exposure Control was utilized. Total Dose length Product (DLP): 565.[address] Dose Index Volume (CTDIvol): 11.9 mGy Comparison: None Findings: The lung bases are clear. The liver and spleen, pancreas, gallbladder, adrenal glands appear normal bilaterally. There is no hydronephrosis. There may be a small nonobstructive stone in the right kidney. This is questionable as IV contrast was administered. The appendix is dilated with the diameter of about 1.2 cm. There is enhancement of the wall the appendix and some inflammation. Findings consistent with acute appendicitis. Small appendicolith noted at the base of the appendix. No abscess identified. Small amount of free fluid noted in the cul-de-sac. Uterus and both ovaries are unremarkable. IMPRESSION: Acute appendicitis. No abscess. Critical value communication. Findings were discussed via telephone with the floor nurse on 4 E. 3:00 PM 02/14/18. The CT scanner at [facility] is accredited by the [employer] and the scans are performed using dose optimization techniques as appropriate to a performed exam including Automatic Exposure control.
--- NOTE | 2018-02-14 15:17 | History & Physical ---
History and Physical History & Physicial Jak Siu MD Feb 14, 2018 15:17
[2018-02-14] MEDS ORDERED: Zemuron 50mg/5ml Inj IV ONE (16:16)
[2018-02-14] MEDS ORDERED: Succinylcholine 20mg/ml 10ml vial ONE (16:16)
[2018-02-14] MEDS ORDERED: Bupivacaine w/Epi 0.25% 30ml Vial INJ ONE (16:16)
[2018-02-14] MEDS ORDERED: fentaNYL 100 mcg/2 mL IV PRN (16:45)
[2018-02-14] MEDS ORDERED: Metoclopramide 10mg/2ml Inj IVP PRN (16:45)
[2018-02-14] MEDS ORDERED: fentaNYL 100 mcg/2 mL IV ONE ×2 (16:49→17:40)
--- NOTE | 2018-02-14 17:12 | Consultation ---
Consult Note Consult Note [id number] Dani Huber MD Feb 14, 2018 17:12
[2018-02-14] MEDS ORDERED: Glycopyrrolate 0.2mg/ml 1ml Vial ONE (17:14)
[2018-02-14] MEDS ORDERED: Propofol 200mg/20ml IV ONE (17:14)
[2018-02-14] MEDS ORDERED: Lidocaine 1% MPF 10mg/ml 5ml ONE (17:14)
[2018-02-14] MEDS ORDERED: Metoclopramide 10mg/2ml Inj ONE (17:14)
[2018-02-14] MEDS ORDERED: Neostigmine 1mg/ml 10ml Inj ONE (17:14)
[2018-02-14] MEDS ORDERED: Bacitracin 50000 Units Vial ONE (17:16)
--- NOTE | 2018-02-14 17:55 | Brief Operative Note ---
Immediate Post Operative Note Operative Note Pre-op Diagnosis: acute appendicitis Procedure: lap appy Post-op Diagnosis: acute perforated appendicitis Surgeon: pavel Anesthesiologist: Xiao Anesthesia: general Specimen: yes Complications: none Condition: stable Fluids: see records Estimated Blood Loss: minimal Drains: RICARDO Implant(s) used?: No Ti Elam Feb 14, 2018 17:55
[2018-02-14] MEDS ORDERED: Milk of Magnesia 30ml Ud ORAL PRN (18:00)
[2018-02-14] MEDS ORDERED: Norco 5mg/325mg tab ORAL PRN (18:00)
--- NOTE | 2018-02-14 18:04 | Immediate Post-Op Evaluation ---
Immediate Post-Op Evalulation Immediate Post-Op Evalulation Procedure: lap appendectomy Date of Evaluation: Feb 14, 2018 Time of Evaluation: 18:03 IV Fluids: 1000 Blood Pressure Systolic: 95 Blood Pressure Diastolic: 54 Pulse Rate: 83 Respiratory Rate: 14 O2 Sat by Pulse Oximetry: 100 Temperature (Fahrenheit): 99.3 Pain Score (1-10): 0 Nausea: No Vomiting: No Complications none Patient Status: awake, reacts, patent Hydration Status: adequate Drug: ancef Given Within 1 Hr of Incision: Yes Time Given: 16:50 Adelaide Ornelas HOME DECORATOR Feb 14, 2018 18:04
--- NOTE | 2018-02-14 18:06 | Anethesia Preoperative Eval ---
Anesthesia Pre-op PMH/ROS General Date of Evaluation: Feb 14, 2018 Time of Evaluation: 16:30 Anesthesiologist: vicky ASA Score: ASA 2 Mallampati Score Class I : Soft palate, uvula, fauces, pillars visible Class II: Soft palate, uvula, fauces visible Class III: Soft palate, base of uvula visible Class IV: Only hard plate visible Mallampati Classification: Class II Surgeon: ashlee Diagnosis: acute appendicitis Surgical Procedure: lap appendectomy Anesthesia History: none Social History: drug use Family History: no anesthesia problems Allergies: Coded Allergies: No Known Allergies (Unverified , 02/13/18) Medications: see eMAR Patient NPO?: Yes NPO Date: Feb 13, 2018 NPO Time: 2300 Past Medical History Cardiovascular: Denies: HTN, CAD, [place], valve dz, arrhythmia, other Pulmonary: Denies: asthma, COPD, JERAMIE, other Gastrointestinal/Genitourinary: Reports: GERD; Denies: CRI, ESRD, other Neurologic/Psychiatric: Denies: dementia, CVA, depression/anxiety, TIA, other Endocrine: Denies: DM, hypothyroidism, steroids, other HEENT: Denies: cataract (L), cataract (R), glaucoma, [place] (L), [place] (R), other Hematology/Immune: Denies: anemia, DVT, bleeding disorder, other PSxH Narrative: none Anesthesia Pre-op Phys. Exam Physician Exam Last Vital Signs Date Time Temp Pulse Resp B/P (MAP) Pulse Ox O2 Delivery O2 Flow Rate FiO2 02/14/18 12:45 98.4 02/14/18 12:00 94 22 107/56 (73) 99 02/14/18 09:00 Room Air Neurologic: CN 2-12 intact Cardiovascular: RRR Respiratory: CTA Gastrointestinal: S/NT/ND Airway Exam Mallampati Classification 2 Mallampati Score: Class II MO: full Dentures: no upper, no lower Anesthesia Pre-op A/P Labs Hematology Test 02/14/18 05:10 White Blood Count 23.9 K/UL (4.8-10.8) #*H Red Blood Count 4.55 M/UL (4.20-5.40) Hemoglobin 13.9 G/DL (12.0-16.0) Hematocrit 39.8 % (37.0-47.0) Mean Corpuscular Volume 87 FL (80-99) Mean Corpuscular Hemoglobin 30.5 PG (27.0-31.0) Mean Corpuscular Hemoglobin Concent 34.9 G/DL (32.0-36.0) Red Cell Distribution Width 11.0 % (11.6-14.8) L Platelet Count 217 K/UL (150-450) Mean Platelet Volume 7.9 FL (6.5-10.1) Neutrophils (%) (Auto) % (45.0-75.0) Lymphocytes (%) (Auto) % (20.0-45.0) Monocytes (%) (Auto) % (1.0-10.0) Eosinophils (%) (Auto) % (0.0-3.0) Basophils (%) (Auto) % (0.0-2.0) Differential Total Cells Counted 100 Neutrophils % (Manual) 86 % (45-75) H Lymphocytes % (Manual) 3 % (20-45) L Monocytes % (Manual) 11 % (1-10) H Eosinophils % (Manual) 0 % (0-3) Basophils % (Manual) 0 % (0-2) Band Neutrophils 0 % (0-8) Platelet Estimate Adequate Platelet Morphology Normal Red Blood Cell Morphology Normal Coagulation Test 02/14/18 05:10 Activated Partial Thromboplast Time 33 SEC (23-33) Chemistry Test 02/14/18 05:10 Sodium Level 138 MMOL/L (136-145) Potassium Level 3.0 MMOL/L (3.5-5.1) L Chloride Level 104 MMOL/L (98-107) Carbon Dioxide Level 22 MMOL/L (21-32) Anion Gap 12 mmol/L (5-15) Blood Urea Nitrogen 8 mg/dL (7-18) Creatinine 0.7 MG/DL (0.55-1.30) Estimat Glomerular Filtration Rate > 60 mL/min (>60) Glucose Level 120 MG/DL (74-106) H Calcium Level 8.8 MG/DL (8.5-10.1) Total Bilirubin 1.1 MG/DL (0.2-1.0) H Direct Bilirubin 0.2 MG/DL (0.0-0.3) Aspartate Amino Transf (AST/SGOT) 13 U/L (15-37) L Alanine Aminotransferase (ALT/SGPT) 24 U/L (12-78) Alkaline Phosphatase 72 U/L (46-116) Total Protein 7.4 G/DL (6.4-8.2) Albumin 3.6 G/DL (3.4-5.0) Globulin 3.8 g/dL Albumin/Globulin Ratio 0.9 (1.0-2.7) L Amylase Level 33 U/L (25-115) Lipase 95 U/L (73-393) Studies Pre-op Studies: EKG - sr Risk Assessment & Plan Plan: general Status Change Before Surgery: No Pre-Antibiotics Drug: ancef Given Within 1 Hr of Incision: Yes Time Given: 16:50 Adelaide Ornelas CRNA Feb 14, 2018 18:06
--- NOTE | 2018-02-14 18:25 | 48 Hour Post Anesthesia Eval ---
Post Anesthesia Evaluation Procedure: lap appendectomy Date of Evaluation: Feb 14, 2018 Time of Evaluation: 18:25 Blood Pressure Systolic: 100 0: 55 Pulse Rate: 80 Respiratory Rate: 14 Temperature (Fahrenheit): 99.5 Airway: patent Nausea: No Vomiting: No Hydration Status: adequate Cardiopulmonary Status: stable Mental Status/LOC: patient returned to baseline Follow-up Care/Observations: na Post-Anesthesia Complications: none Follow-up care needed: N/A Adelaide Ornelas CRNA Feb 14, 2018 18:25
--- NOTE | 2018-02-14 18:30 | History and Physical Report ---
DATE OF ADMISSION: 02/13/2018 CHIEF COMPLAINT: Right lower quadrant abdominal pain. HISTORY OF PRESENT ILLNESS: The patient is a 27-year-old female. Denies any past medical history or past surgical history, who presented to the hospital complaining of right lower quadrant abdominal pain. She stated after the following night she had going to bed and woke up next morning with severe abdominal pain, went to work, the pain got progressively worsening associated with nausea, vomiting, and unable to tolerate p.o. intake. The patient subsequently decided to come to the emergency room. Shortly after initial evaluation in the emergency, the patient was noted to have leukocytosis with abdominal pain and subsequently the patient was admitted to the hospital with possible acute cholecystitis versus appendicitis. PAST MEDICAL HISTORY/PAST SURGICAL HISTORY: Denies any past medical or past surgical history. MEDICATIONS: Medications at home is significant for omeprazole. ALLERGIES: No known drug allergies. SOCIAL HISTORY: Denies any smoking, alcohol, or drugs. FAMILY HISTORY: Noncontributory. REVIEW OF SYSTEMS: Mostly as above. Denies any dysuria, frequency, or hematuria. Denies any hemoptysis or hematochezia. Denies any bright red blood per rectum. PHYSICAL EXAMINATION: VITAL SIGNS: On admission significant for temperature 97.5, pulse of 72, respirations 20, and blood pressure 121/76. GENERAL: The patient is awake, responsive, in no acute distress. HEAD AND NECK: Pupils are equal and reactive to light. Extraocular movements are intact. Neck was supple. No JVD. LUNGS: Good air entry. No wheezing or rales. HEART: S1 and S2. Regular rhythm. No gallops. ABDOMEN: Soft. Rebound tenderness on the right lower quadrant noted. No fluid shift. EXTREMITIES: No cyanosis, clubbing, or edema. NEUROLOGIC: Cranial nerves II through XII grossly intact. Motor is 5/5 in all extremities. Gait is intact. RECTAL: Refused and deferred. GENITOURINARY: Refused and deferred LABORATORY AND DIAGNOSTIC DATA: Laboratory on admission from the ER, WBC 15.9, hemoglobin 15, hematocrit 47, platelet is 225. Repeat WBC is a 23.9. Sodium 137, potassium 5.3, chloride 102, bicarb 23, BUN 11, creatinine 0.7. AST of 42, ALT 28, alkaline phosphatase 84. Beta HCG is negative. PTT of 30. Urinalysis +2 protein, +4 ketones, many mucosa. Urine drug screen positive for opioids as well as THC. The patient had ultrasound of the abdomen in the ER, cholelithiasis. X-ray of the abdomen, no acute process. CT of the abdomen and pelvis, significant for acute appendicitis, no abscess. Chest x-ray, no acute process. ASSESSMENT: 1. Sepsis secondary to the acute abdomen. 2. Severe dehydration. 3. Acute appendicitis. PLAN: Admit the patient to Med/Surg. Keep the patient NPO, intravenous hydration, antibiotic with ceftriaxone. The patient has been seen by surgery Dr. Elam. Follow up with the GI consultation with Dr. Mirza and Pulmonary Critical Care Dr. Pablo. Monitor laboratory closely. Code status is Full Code. In preparation of the possible surgery soon. Jak Siu M.D. DR: Edu JOB#: [id number] CC:
--- NOTE | 2018-02-14 18:51 | Pre-Procedure Note/Attestation ---
Pre-Procedure Note/Attestation Complete Prior to Procedure Planned Procedure: not applicable Procedure Narrative: laparoscopic appendectomy possible open Indications for Procedure Pre-Operative Diagnosis: acute appendicitis Attestation I attest that I discussed the nature of the procedure; its benefits; risks and complications; and alternatives (and the risks and benefits of such alternatives ), prior to the procedure, with the patient (or the patient's legal artist's representative). I attest that, if there was a reasonable possibility of needing a blood transfusion, the patient (or the patient's legal artist's representative) was given the [facility] standardized written summary, pursuant to the [place] Blood Safety Act ([place] Health and Safety Code # 1645, as amended). I attest that I re-evaluated the patient just prior to the surgery and that there has been no change in the patient's H&P, except as documented below: Ti Elam Feb 14, 2018 18:51
[2018-02-14] MEDS ORDERED: Hydromorphone 0.5mg/0.5ml inj IVP PRN (20:00)
[2018-02-14] MEDS ORDERED: Ketorolac 30mg Inj IV PRN (20:00)
[2018-02-14] MEDS: Docusate 100mg cap ORAL SCH (20:00)
--- NOTE | 2018-02-14 20:45 | Operative Note - Dictated ---
DATE OF OPERATION: 02/14/2018 PREOPERATIVE DIAGNOSIS: Acute appendicitis. POSTOPERATIVE DIAGNOSIS: Acute perforated appendicitis. OPERATION PERFORMED: Laparoscopic appendectomy. ATTENDING SURGEON: Ti Elam M.D. TANK CALIBRATOR: None. ANESTHESIOLOGIST: Adelaide Ornelas CRNA. ANESTHESIA: General MEDICAL COMMUNICATION SPECIALIST. ESTIMATED BLOOD LOSS: Minimal. IV FLUIDS: Please see anesthesia records. COMPLICATIONS: None. SPECIMENS: Appendix sent to pathology for review and peritoneal fluid sent for microbiology. COMPLICATIONS: None. INTRAVENOUS FLUIDS: Please see anesthesia records. ANTIBIOTICS: The patient is on scheduled IV antibiotics for acute active inflammatory process. DRAINS: A 15-Marshallese Yoandy drain left in pelvis. WOUND CLASSIFICATION: Class 3. INDICATIONS FOR PROCEDURE: This is a 27-year-old female, who presented to [facility] Emergency Department complaining of worsening abdominal pain with leukocytosis and fevers. Initial workup was thought to be potentially cholecystitis and on examination, the patient was diffusely tender, which prompted CT scan, which identified acute appendicitis without perforation or abscess. Given these findings, surgery was indicated and recommended. The patient was given IV antibiotics and taken to the operating room for laparoscopic possible open appendectomy. Consent was obtained after explaining the risks, benefits, and alternatives of surgery to the patient in detail. OPERATIVE NOTE: The patient was taken to the operating room and placed on the operating table in supine position with left arm tucked. All bony prominences were well padded. SCDs were placed. No Deng catheter was inserted given the patient just voided prior to entering the operating room. General anesthesia was induced. Preoperative time-out was taken in identifying the patient, procedure, operative staff, and surgical staff. The patient was already on scheduled IV antibiotics. General anesthesia was induced. The patient was intubated. The abdomen was clipped, prepped, and draped in standard surgical fashion. An infraumbilical incision was made using a fresh #11 scalpel and carried down to the fascia, which was elevated and incised. Entry into the abdomen was obtained using the open Mingo technique without complication. The abdomen was insufflated to 12 to 15 mmHg. Secondary trocars were placed under direct visualization beginning with a 5 mm suprapubic and a 12 mm left lower quadrant trocar. No injury from secondary trocar placement identified. Local anesthetic was infiltrated in all proposed skin incisions throughout the procedure as necessary. The abdomen was inspected and the right upper quadrant, the liver, and gallbladder looked otherwise healthy. Left upper quadrant and the liver looked otherwise healthy. In the pelvis, there was some murky serous fluid and a small right inguinal hernia noted. The right lower quadrant, the omentum was draped over the cecum. The patient was placed in Trendelenburg with the left side down and the omentum was dissected away from the lower quadrant, at which time, the base of the appendix was identified and noted to be significantly inflamed just distal to the base, but the cecum and mesentery looked otherwise normal. In tracking the appendix, there was noted to be tracking towards the pelvis, at which time, there was some fecal material identified. At this time, it was identified that the patient had a perforated mid appendix and inflammatory process was noted in the pelvis and right lower quadrant. The base of the appendix was grasped and a window was made just proximal to the area of inflammatory changes. The mesoappendix was then easily identified and initially began by dividing mesoappendix using a laparoscopic linear stapler, which then required laparoscopic clips for hemostasis of the appendiceal artery. Following this, the appendix was divided at the base in the healthy tissue without complication. The appendix was then placed in endoscopic retrieval bag and removed from the abdomen using left lower quadrant port. The abdomen was then inspected. No abnormalities were noted. The abdomen was copiously irrigated with multiple liters of antibiotic sterile saline. Prior to irrigation, some of the peritoneal fluid was taken and sent them for microbiology culture. Once all the fluid was cleared and the abdomen was cleaned out and no other abnormalities noted, the base of the appendix and mesoappendix clips and ana were all identified and noted to be hemostatic and intact and viable. At this time, given the free fecalith material noted in the abdomen, decision was made to leave a drain. A 15-Marshallese Yoandy drain was placed in the pelvis through the left lower quadrant port. A drain stitch was placed using 3-0 nylon suture. Following this, all secondary trocars were removed under direct visualization followed by the abdominal port. The abdomen was desufflated. The umbilical fascial site was closed using a #0 Vicryl [id number] suture. The remaining skin incisions were closed using 4-0 Monocryl subcuticular interrupted sutures. Wounds were cleansed. Steri-Strips and dressings were applied. The patient tolerated the procedure well and was taken to the postanesthetic care unit in stable condition. Ti Elam M.D. DR: FELICIANO JOB#: [id number] CC: [id number]
[2018-02-14] MEDS ORDERED: Vancomycin 750mg/NS 250ml IVPB SCH (21:00)
--- NOTE | 2018-02-14 21:00 | Consultation ---
DATE OF CONSULTATION: 02/14/2018 INFECTIOUS DISEASE CONSULTATION CONSULTING PHYSICIAN: Dani Huber M.D. REFERRING PHYSICIAN: 1. Slick Pablo M.D. 2. Jak Siu M.D. REASON FOR CONSULTATION: Evaluation of the patient for abdominal pain, appendicitis, antibiotic management, leukocytosis. HISTORY OF PRESENT ILLNESS: The patient is a 27-year-old female with no significant prior medical history, who came to the hospital with sudden onset of abdominal pain. Surgical consultation was requested. Stat CT of the abdomen was ordered that showed evidence of appendicitis. The patient was found to have leukocytosis and at the time of my dictation, she was going for surgery. Infectious Diseases consultation was requested for evaluation of the patient and for antibiotic management. PAST MEDICAL HISTORY: None based on the information provided in the chart. ALLERGIES: No known drug allergies. MEDICATIONS: The patient has been started on IV Flagyl and Rocephin. SOCIAL HISTORY: The patient is not available. PHYSICAL EXAMINATION: VITAL SIGNS: Temperature 99, pulse 86, respiratory rate 18, T-max 101.3, blood pressure 107/56. (For the rest of exam, the patient was not available at this point. We will follow other exam tomorrow). LABORATORY AND DIAGNOSTIC DATA: White blood cell count on admission 15.9 and today 23.4, hemoglobin 13, platelets 217,000. UA unremarkable. BUN 8, creatinine 0.8. ALT, AST, and alkaline phosphatase are unremarkable. Chest x-ray CT of the abdomen showed evidence of acute appendicitis. ASSESSMENT: The patient is a 27-year-old female with: 1. Fever. 2. Leukocytosis. 3. Appendicitis (the patient is in the OR for appendectomy). PLAN: 1. We will monitor. 2. We will continue the patient on Rocephin and Flagyl. 3. Monitor CBC. 4. Monitor BMP. 5. Monitor blood culture. 6. Followup note. 7. Duration of antibiotic depends on clinical findings at the operation site. Thank you for this consultation. I will follow the patient with you during this hospitalization. Dani Huber M.D. DR: Hussein JOB#: [id number] CC:
[2018-02-14] MEDS ORDERED: D5 1/2NS 1000ml IV ONE (21:34)
[2018-02-14] MEDS: HYDROmorphone 1mg/ml Carpuject IVP PRN (23:27)
[2018-02-15 04:00] VITALS: BP 97/53
[2018-02-15] MEDS: Metoclopramide 10mg/2ml Inj IVP PRN ×2 (04:08→12:19)
[2018-02-15] MEDS: HYDROmorphone 1mg/ml Carpuject IVP PRN (06:08)
[2018-02-15 06:41] LABS: HEMATOCRIT 35.8 % (37.0-47.0); HEMOGLOBIN 12.1 G/DL (12.0-16.0); MEAN CORPUSCULAR VOLUME 88 FL (80-99); PLATELET COUNT 168 K/UL (150-450); RED BLOOD COUNT 4.06 M/UL (4.20-5.40); RED CELL DISTRIBUTION WIDTH 11.1 % (11.6-14.8); WHITE BLOOD COUNT 17.2 K/UL (4.8-10.8)
[2018-02-15 06:45] LABS: INR 1.2 (0.9-1.1)
[2018-02-15 06:52] LABS: ALANINE AMINOTRANSFERASE 12 U/L (12-78); ALBUMIN 2.6 G/DL (3.4-5.0); ALBUMIN/GLOBULIN RATIO 0.7 (1.0-2.7); ALKALINE PHOSPHATASE 58 U/L (46-116); ANION GAP 9 mmol/L (5-15); ASPARTATE AMINO TRANSFERASE 11 U/L (15-37); BILIRUBIN,TOTAL 0.7 MG/DL (0.2-1.0); BLOOD UREA NITROGEN 5 mg/dL (7-18); CALCIUM 7.9 MG/DL (8.5-10.1); CARBON DIOXIDE 24 MMOL/L (21-32); CHLORIDE 105 MMOL/L (98-107); CREATININE 0.7 MG/DL (0.55-1.30); PHOSPHORUS 2.8 MG/DL (2.5-4.9); POTASSIUM 3.5 MMOL/L (3.5-5.1); SODIUM 137 MMOL/L (136-145)
[2018-02-15] MEDS: Docusate 100mg cap ORAL SCH ×2 (08:04→17:22)
--- NOTE | 2018-02-15 08:13 | Infectious Diseases Prog Note ---
Assessment/Plan Assessment/Plan The patient is a 27-year-old female with: Fever. Leukocytosis. Appendicitis SP Lap Appendectomy 02/14/18 PLAN: - We will monitor. - We will continue the patient on Rocephin and Flagyl #2/ - Monitor CBC. - Monitor BMP. - Monitor blood culture and OR cultures I will follow the patient with youduring this hospitalization. Subjective Allergies: Coded Allergies: No Known Allergies (Unverified , 02/13/18) Subjective Patient SP Appendectomy yesterday Aferbile Post OP Leukocytosis improving Abdominal pain controlled Objective Vital Signs Last 24 Hour Vital Signs Date Time Temp Pulse Resp B/P (MAP) Pulse Ox O2 Delivery O2 Flow Rate FiO2 02/15/18 04:00 97.0 68 18 97/53 (68) 95 02/14/18 23:57 97.5 98 18 103/51 (68) 99 02/14/18 21:00 Room Air 02/14/18 20:00 100.9 93 18 98/61 (73) 100 02/14/18 18:58 99.5 82 14 99/61 100 Nasal Cannula 3 02/14/18 18:45 82 14 98/58 100 Nasal Cannula 3 02/14/18 18:35 82 14 97/55 100 Nasal Cannula 3 02/14/18 18:25 80 14 02/14/18 18:15 82 14 99/57 100 Simple Mask 8 02/14/18 18:10 82 14 97/56 100 Simple Mask 8 02/14/18 18:05 78 14 93/54 100 Simple Mask 8 02/14/18 18:04 83 14 100 02/14/18 17:58 99.6 80 14 96/50 100 Simple Mask 8 02/14/18 12:45 98.4 02/14/18 12:00 98.4 94 22 107/56 (73) 99 02/14/18 09:00 Room Air Height (Feet): 5 Height (Inches): 0.00 Weight (Pounds): 114 HEENT: normocephalic, anicteric, EOMI Respiratory/Chest: lungs clear, normal breath sounds Cardiovascular: regular rhythm Abdomen: hypoactive bowel sounds, other - Soft, Tender, Extremities: no cyanosis, no clubbing, no edema Skin: no rash Neurologic/Psychiatric: alert, oriented x 3 Laboratory Tests Test 02/15/18 04:45 White Blood Count 17.2 K/UL (4.8-10.8) H Red Blood Count 4.06 M/UL (4.20-5.40) L Hemoglobin 12.1 G/DL (12.0-16.0) Hematocrit 35.8 % (37.0-47.0) L Mean Corpuscular Volume 88 FL (80-99) Mean Corpuscular Hemoglobin 29.9 PG (27.0-31.0) Mean Corpuscular Hemoglobin Concent 33.9 G/DL (32.0-36.0) Red Cell Distribution Width 11.1 % (11.6-14.8) L Platelet Count 168 K/UL (150-450) Mean Platelet Volume 7.9 FL (6.5-10.1) Neutrophils (%) (Auto) % (45.0-75.0) Lymphocytes (%) (Auto) % (20.0-45.0) Monocytes (%) (Auto) % (1.0-10.0) Eosinophils (%) (Auto) % (0.0-3.0) Basophils (%) (Auto) % (0.0-2.0) Neutrophils % (Manual) Pending Lymphocytes % (Manual) Pending Platelet Estimate Pending Platelet Morphology Pending Erythrocyte Sedimentation Rate Pending Prothrombin Time 12.8 SEC (9.30-11.50) H Prothromb Time International Ratio 1.2 (0.9-1.1) H Activated Partial Thromboplast Time 38 SEC (23-33) H Sodium Level 137 MMOL/L (136-145) Potassium Level 3.5 MMOL/L (3.5-5.1) Chloride Level 105 MMOL/L (98-107) Carbon Dioxide Level 24 MMOL/L (21-32) Anion Gap 9 mmol/L (5-15) Blood Urea Nitrogen 5 mg/dL (7-18) L Creatinine 0.7 MG/DL (0.55-1.30) Estimat Glomerular Filtration Rate > 60 mL/min (>60) Glucose Level 136 MG/DL (74-106) H Calcium Level 7.9 MG/DL (8.5-10.1) L Phosphorus Level 2.8 MG/DL (2.5-4.9) Magnesium Level 1.6 MG/DL (1.8-2.4) L Total Bilirubin 0.7 MG/DL (0.2-1.0) Aspartate Amino Transf (AST/SGOT) 11 U/L (15-37) L Alanine Aminotransferase (ALT/SGPT) 12 U/L (12-78) Alkaline Phosphatase 58 U/L (46-116) C-Reactive Protein, Quantitative > 70.0 mg/dL (0.00-0.90) H Total Protein 6.1 G/DL (6.4-8.2) L Albumin 2.6 G/DL (3.4-5.0) L Globulin 3.5 g/dL Albumin/Globulin Ratio 0.7 (1.0-2.7) L Current Medications Medications (Trade) Dose Ordered Sig/Marina Route PRN Reason Start Time Stop Time Status Last Admin Dose Admin Acetaminophen (Tylenol) 650 mg Q6H PRN ORAL Mild Pain (Pain Scale 1-3) 02/14/18 18:00 03/16/18 17:59 02/14/18 22:02 Acetaminophen/ Hydrocodone Bitart ([place] 10/325) 1 tab Q4H PRN ORAL Severe Pain (Pain Scale 7-10) 02/14/18 18:00 02/21/18 17:59 Acetaminophen/ Hydrocodone Bitart ([place] 5/325) 1 tab Q4H PRN ORAL Moderate Pain (Pain Scale 4-6) 02/14/18 18:00 02/21/18 17:59 Al Hydroxide/Mg Hydroxide (Mylanta) 15 ml Q6H PRN ORAL DYSPEPSIA 02/14/18 20:00 03/16/18 19:59 Barium Sulfate (Readi-Cat 2) 450 ml NOW PRN ORAL Radiology Procedure 02/14/18 12:00 02/16/18 11:52 Ceftriaxone Sodium 1 gm/ Dextrose 55 ml @ 110 mls/hr Q24H IVPB 02/14/18 09:00 02/21/18 08:59 02/14/18 09:30 Dextrose (Dextrose 50%) 25 ml Q30M PRN IV Hypoglycemia 02/13/18 20:30 03/15/18 20:29 Dextrose (Dextrose 50%) 50 ml Q30M PRN IV Hypoglycemia 02/13/18 20:30 03/15/18 20:29 Dextrose/Sodium Chloride 1,000 ml @ 75 mls/hr [id number] IV 02/13/18 20:20 03/15/18 20:19 02/14/18 22:01 Diphenhydramine HCl (Benadryl) 25 mg Q8H PRN ORAL Itching/Pruritis 02/14/18 18:00 03/16/18 17:59 Docusate Sodium (Colace) 100 mg TWICE A DAY ORAL 02/14/18 20:00 03/16/18 19:59 Heparin Sodium (Porcine) (Heparin 5000 units/ml) 5,000 units EVERY 12 HOURS SUBQ 02/13/18 21:00 03/15/18 20:59 02/14/18 20:34 Hydromorphone HCl (Dilaudid) 0.5 mg Q3H PRN IVP Pain Score 1-3 02/14/18 20:00 02/21/18 19:59 Hydromorphone HCl (Dilaudid) 1 mg Q3H PRN IVP pain score 4-6 02/14/18 20:00 02/21/18 19:59 02/15/18 06:08 Hydromorphone HCl (Dilaudid) 2 mg Q3H PRN IVP pain score 7-10 02/14/18 20:00 02/21/18 19:59 02/15/18 02:27 Iopamidol (Isovue-300 100ml) 100 ml NOW PRN INJ Radiology Procedure 02/14/18 12:00 02/16/18 23:59 Ketorolac Tromethamine (Toradol 30mg) 15 mg Q6H PRN IV Breakthrough Pain 02/14/18 20:00 02/19/18 19:59 Ketorolac Tromethamine (Toradol 30mg) 30 mg Q8H PRN IV Moderate Pain 4 to 6 02/13/18 21:30 02/18/18 21:29 02/14/18 12:15 Lorazepam (Ativan 2mg/ml 1ml) 1 mg Q4H PRN IV agitation 02/13/18 20:30 02/20/18 20:29 Magnesium Hydroxide (Mom) 30 ml BIDPRN PRN ORAL Constipation 02/14/18 18:00 03/16/18 17:59 Metoclopramide HCl (Reglan) 10 mg Q6H PRN IVP severe nausea 02/13/18 20:30 03/15/18 20:29 02/15/18 04:08 Metronidazole 100 ml @ 100 mls/hr Q8HR IVPB 02/14/18 16:00 02/21/18 15:59 02/15/18 06:07 Nitroglycerin (Ntg) 0.4 mg Q5M X 3 DOSES PRN SL Prn Chest Pain 02/13/18 20:30 03/15/18 20:29 Ondansetron HCl (Zofran) 4 mg Q6H PRN IVP Nausea & Vomiting 02/14/18 20:00 03/16/18 19:59 02/15/18 02:52 Pantoprazole (Protonix) 40 mg DAILY IV 02/14/18 09:00 03/16/18 08:59 02/14/18 09:30 Polyethylene Glycol (Miralax) 17 gm HSPRN PRN ORAL Constipation 02/13/18 20:30 03/15/18 20:29 Promethazine HCl (Phenergan) 12.5 mg Q6H PRN IM refractory nausea/vomiting 02/13/18 21:30 03/15/18 21:29 Temazepam (Restoril) 7.5 mg DAILYPRN PRN ORAL Insomnia 02/14/18 18:00 02/21/18 17:59 Rafat Reese MD Feb 15, 2018 08:13
[2018-02-15] MEDS: Heparin 5000 units/ml inj SUBQ SCH ×2 (08:24→20:18)
[2018-02-15 08:40] VITALS: BP 91/60
[2018-02-15] MEDS: Pantoprazole Inj IV SCH (08:56)
[2018-02-15] MEDS: cefTRIAXone 1 GM in D5W 55 ML IVPB SCH (08:56)
--- NOTE | 2018-02-15 09:31 | General Progress Note ---
Progress Note Progress Note Surgery: doing well. states she is tried. n o n/v/f/c. minimal oral intake. incisional pain. leukocytosis improved abd soft, incisional tenderness, drain serosang, wounds c/d/i s/p lap appy for acute perforated appendicitis; recovering -diet as tolerated -activity as tolerated -IV Abx -incentive spirometry -Rx as written -drain care and management -trend labs will need IV Abx for a few days then transition to oral for d/c thank you Ti Elam Feb 15, 2018 09:31
[2018-02-15 12:00] VITALS: BP 96/57
[2018-02-15] MEDS: D5 1/2NS 1,000 ML IV SCH (12:23)
--- NOTE | 2018-02-15 14:49 | Internal Med Progress Note ---
Subjective Date of Service: Feb 15, 2018 Physician Name AyalaNicolas Attending Physician Jak Siu MD Current Medications Medications (Trade) Dose Ordered Sig/Marina Route PRN Reason Start Time Stop Time Status Last Admin Dose Admin Acetaminophen (Tylenol) 650 mg Q6H PRN ORAL Mild Pain (Pain Scale 1-3) 02/14/18 18:00 03/16/18 17:59 02/14/18 22:02 Acetaminophen/ Hydrocodone Bitart ([place] 10/325) 1 tab Q4H PRN ORAL Severe Pain (Pain Scale 7-10) 02/14/18 18:00 02/21/18 17:59 Acetaminophen/ Hydrocodone Bitart ([place]ck[place] 5/325) 1 tab Q4H PRN ORAL Moderate Pain (Pain Scale 4-6) 02/14/18 18:00 02/21/18 17:59 Al Hydroxide/Mg Hydroxide (Mylanta) 15 ml Q6H PRN ORAL DYSPEPSIA 02/14/18 20:00 03/16/18 19:59 Barium Sulfate (Readi-Cat 2) 450 ml NOW PRN ORAL Radiology Procedure 02/14/18 12:00 02/16/18 11:52 Ceftriaxone Sodium 1 gm/ Dextrose 55 ml @ 110 mls/hr Q24H IVPB 02/14/18 09:00 02/21/18 08:59 02/15/18 08:56 Dextrose (Dextrose 50%) 25 ml Q30M PRN IV Hypoglycemia 02/13/18 20:30 03/15/18 20:29 Dextrose (Dextrose 50%) 50 ml Q30M PRN IV Hypoglycemia 02/13/18 20:30 03/15/18 20:29 Dextrose/Sodium Chloride 1,000 ml @ 75 mls/hr [id number] IV 02/13/18 20:20 03/15/18 20:19 02/15/18 12:23 Diphenhydramine HCl (Benadryl) 25 mg Q8H PRN ORAL Itching/Pruritis 02/14/18 18:00 03/16/18 17:59 Docusate Sodium (Colace) 100 mg TWICE A DAY ORAL 02/14/18 20:00 03/16/18 19:59 Heparin Sodium (Porcine) (Heparin 5000 units/ml) 5,000 units EVERY 12 HOURS SUBQ 02/13/18 21:00 03/15/18 20:59 02/14/18 20:34 Hydromorphone HCl (Dilaudid) 0.5 mg Q3H PRN IVP Pain Score 1-3 02/14/18 20:00 02/21/18 19:59 Hydromorphone HCl (Dilaudid) 1 mg Q3H PRN IVP pain score 4-6 02/14/18 20:00 02/21/18 19:59 02/15/18 06:08 Hydromorphone HCl (Dilaudid) 2 mg Q3H PRN IVP pain score 7-10 02/14/18 20:00 02/21/18 19:59 02/15/18 02:27 Iopamidol (Isovue-300 100ml) 100 ml NOW PRN INJ Radiology Procedure 02/14/18 12:00 02/16/18 23:59 Ketorolac Tromethamine (Toradol 30mg) 15 mg Q6H PRN IV Breakthrough Pain 02/14/18 20:00 02/19/18 19:59 Ketorolac Tromethamine (Toradol 30mg) 30 mg Q8H PRN IV Moderate Pain 4 to 6 02/13/18 21:30 02/18/18 21:29 02/14/18 12:15 Lorazepam (Ativan 2mg/ml 1ml) 1 mg Q4H PRN IV agitation 02/13/18 20:30 02/20/18 20:29 Magnesium Hydroxide (Mom) 30 ml BIDPRN PRN ORAL Constipation 02/14/18 18:00 03/16/18 17:59 Metoclopramide HCl (Reglan) 10 mg Q6H PRN IVP severe nausea 02/13/18 20:30 03/15/18 20:29 02/15/18 12:19 Metronidazole 100 ml @ 100 mls/hr Q8HR IVPB 02/14/18 16:00 02/21/18 15:59 02/15/18 06:07 Nitroglycerin (Ntg) 0.4 mg Q5M X 3 DOSES PRN SL Prn Chest Pain 02/13/18 20:30 03/15/18 20:29 Ondansetron HCl (Zofran) 4 mg Q6H PRN IVP Nausea & Vomiting 02/14/18 20:00 03/16/18 19:59 02/15/18 02:52 Pantoprazole (Protonix) 40 mg DAILY IV 02/14/18 09:00 03/16/18 08:59 02/15/18 08:56 Polyethylene Glycol (Miralax) 17 gm HSPRN PRN ORAL Constipation 02/13/18 20:30 03/15/18 20:29 Promethazine HCl (Phenergan) 12.5 mg Q6H PRN IM refractory nausea/vomiting 02/13/18 21:30 03/15/18 21:29 Temazepam (Restoril) 7.5 mg DAILYPRN PRN ORAL Insomnia 02/14/18 18:00 02/21/18 17:59 Allergies: Coded Allergies: No Known Allergies (Unverified , 02/13/18) ROS Limited/Unobtainable: No Constitutional: Reports: chills, fever HEENT: Reports: no symptoms Cardiovascular: Reports: no symptoms Respiratory: Reports: no symptoms Gastrointestinal/Abdominal: Reports: abdominal pain Neurologic/Psychiatric: Reports: no symptoms Subjective 27 YO F admitted with fever and abdominal pain. S/P appendectomy 02/14/18. Cover for Int Med-Dr Siu. Objective Last Vital Signs Date Time Temp Pulse Resp B/P (MAP) Pulse Ox O2 Delivery O2 Flow Rate FiO2 02/15/18 12:00 97.9 75 20 96/57 (70) 97 02/14/18 21:00 Room Air 02/14/18 18:58 3 General Appearance: WD/WN, no apparent distress, alert EENT: PERRL/EOMI, normal ENT inspection, TMs normal Neck: non-tender, normal alignment, supple Cardiovascular: normal peripheral pulses, normal rate, regular rhythm, no gallop/murmur, no JVD Respiratory/Chest: chest wall non-tender, lungs clear, normal breath sounds, no respiratory distress, no accessory muscle use Abdomen: no organomegaly, no mass, decreased bowel sounds, guarding, tender Extremities: normal range of motion, non-tender Neurologic: content publisher II-XII grossly normal, no motor/sensory deficits Skin: normal pigmentation, warm/dry Laboratory Tests Test 02/15/18 04:45 White Blood Count 17.2 K/UL (4.8-10.8) H Red Blood Count 4.06 M/UL (4.20-5.40) L Hemoglobin 12.1 G/DL (12.0-16.0) Hematocrit 35.8 % (37.0-47.0) L Mean Corpuscular Volume 88 FL (80-99) Mean Corpuscular Hemoglobin 29.9 PG (27.0-31.0) Mean Corpuscular Hemoglobin Concent 33.9 G/DL (32.0-36.0) Red Cell Distribution Width 11.1 % (11.6-14.8) L Platelet Count 168 K/UL (150-450) Mean Platelet Volume 7.9 FL (6.5-10.1) Neutrophils (%) (Auto) % (45.0-75.0) Lymphocytes (%) (Auto) % (20.0-45.0) Monocytes (%) (Auto) % (1.0-10.0) Eosinophils (%) (Auto) % (0.0-3.0) Basophils (%) (Auto) % (0.0-2.0) Differential Total Cells Counted 100 Neutrophils % (Manual) 80 % (45-75) H Lymphocytes % (Manual) 5 % (20-45) L Monocytes % (Manual) 4 % (1-10) Eosinophils % (Manual) 0 % (0-3) Basophils % (Manual) 0 % (0-2) Band Neutrophils 11 % (0-8) H Platelet Estimate Adequate Platelet Morphology Normal Red Blood Cell Morphology Normal Erythrocyte Sedimentation Rate 35 MM/HR (0-20) H Prothrombin Time 12.8 SEC (9.30-11.50) H Prothromb Time International Ratio 1.2 (0.9-1.1) H Activated Partial Thromboplast Time 38 SEC (23-33) H Sodium Level 137 MMOL/L (136-145) Potassium Level 3.5 MMOL/L (3.5-5.1) Chloride Level 105 MMOL/L (98-107) Carbon Dioxide Level 24 MMOL/L (21-32) Anion Gap 9 mmol/L (5-15) Blood Urea Nitrogen 5 mg/dL (7-18) L Creatinine 0.7 MG/DL (0.55-1.30) Estimat Glomerular Filtration Rate > 60 mL/min (>60) Glucose Level 136 MG/DL (74-106) H Calcium Level 7.9 MG/DL (8.5-10.1) L Phosphorus Level 2.8 MG/DL (2.5-4.9) Magnesium Level 1.6 MG/DL (1.8-2.4) L Total Bilirubin 0.7 MG/DL (0.2-1.0) Aspartate Amino Transf (AST/SGOT) 11 U/L (15-37) L Alanine Aminotransferase (ALT/SGPT) 12 U/L (12-78) Alkaline Phosphatase 58 U/L (46-116) C-Reactive Protein, Quantitative > 70.0 mg/dL (0.00-0.90) H Total Protein 6.1 G/DL (6.4-8.2) L Albumin 2.6 G/DL (3.4-5.0) L Globulin 3.5 g/dL Albumin/Globulin Ratio 0.7 (1.0-2.7) L Microbiology Date/Time Source Procedure Growth Status 02/14/18 17:26 Peritoneal Fluid Gram Stain - Final Resulted 02/14/18 17:26 Peritoneal Fluid Aerobic Culture Pending Resulted Intake and Output 02/14/18 02/15/18 19:00 07:00 Intake Total 2485 ml 745 ml Output Total 65 ml 133 ml Balance 2420 ml 612 ml Intake Oral 120 ml IV Total 2485 ml 625 ml Output Stool Total 3 ml Drainage Total 60 ml 130 ml Estimated Blood Loss 5 ml # Voids 3 Assessment/Plan Problem List: (1) Appendicitis, acute Assessment & Plan: S/P laparoscopic appendectomy 02/14/18-see surgery note. (2) Fever (3) Leukocytosis Assessment & Plan: Secondary to appendicitis. Continue rocephin and flagy. per ID (4) Abdominal pain Status: tolerating diet Nicolas Ayala MD Feb 15, 2018 14:49
[2018-02-15 15:52] VITALS: BP 97/53
--- NOTE | 2018-02-15 18:13 | General Progress Note ---
Assessment/Plan Assessment/Plan Assessment Acute perforated appy Recommendations post op care abx diet per surgery Subjective Allergies: Coded Allergies: No Known Allergies (Unverified , 02/13/18) Subjective Feels OK post op wound pain Objective Last 24 Hour Vital Signs Date Time Temp Pulse Resp B/P (MAP) Pulse Ox O2 Delivery O2 Flow Rate FiO2 02/15/18 15:52 98.4 87 16 97/53 (68) 99 02/15/18 12:00 97.9 75 20 96/57 (70) 97 02/15/18 08:40 96.6 61 18 91/60 (70) 100 02/15/18 04:00 97.0 68 18 97/53 (68) 95 02/14/18 23:57 97.5 98 18 103/51 (68) 99 02/14/18 21:00 Room Air 02/14/18 20:00 100.9 93 18 98/61 (73) 100 02/14/18 18:58 99.5 82 14 99/61 100 Nasal Cannula 3 02/14/18 18:45 82 14 98/58 100 Nasal Cannula 3 02/14/18 18:35 82 14 97/55 100 Nasal Cannula 3 02/14/18 18:25 80 14 02/14/18 18:15 82 14 99/57 100 Simple Mask 8 Intake and Output 02/14/18 02/15/18 19:00 07:00 Intake Total 2485 ml 745 ml Output Total 65 ml 133 ml Balance 2420 ml 612 ml Intake Oral 120 ml IV Total 2485 ml 625 ml Output Stool Total 3 ml Drainage Total 60 ml 130 ml Estimated Blood Loss 5 ml # Voids 3 Laboratory Tests 02/15/18 04:45: White Blood Count 17.2H, Red Blood Count 4.06L, Hemoglobin 12.1, Hematocrit 35.8L, Mean Corpuscular Volume 88, Mean Corpuscular Hemoglobin 29.9, Mean Corpuscular Hemoglobin Concent 33.9, Red Cell Distribution Width 11.1L, Platelet Count 168, Mean Platelet Volume 7.9, Neutrophils (%) (Auto) , Lymphocytes (%) (Auto) , Monocytes (%) (Auto) , Eosinophils (%) (Auto) , Basophils (%) (Auto) , Differential Total Cells Counted 100, Neutrophils % ( Manual) 80H, Lymphocytes % (Manual) 5L, Monocytes % (Manual) 4, Eosinophils % ( Manual) 0, Basophils % (Manual) 0, Band Neutrophils 11H, Platelet Estimate Adequate, Platelet Morphology Normal, Red Blood Cell Morphology Normal, Erythrocyte Sedimentation Rate 35H, Prothrombin Time 12.8H, Prothromb Time International Ratio 1.2H, Activated Partial Thromboplast Time 38H, Sodium Level 137, Potassium Level 3.5, Chloride Level 105, Carbon Dioxide Level 24, Anion Gap 9, Blood Urea Nitrogen 5L, Creatinine 0.7, Estimat Glomerular Filtration Rate > 60, Glucose Level 136H, Calcium Level 7.9L, Phosphorus Level 2.8, Magnesium Level 1.6L, Total Bilirubin 0.7, Aspartate Amino Transf (AST/SGOT) 11L , Alanine Aminotransferase (ALT/SGPT) 12, Alkaline Phosphatase 58, C-Reactive Protein, Quantitative > 70.0H, Total Protein 6.1L, Albumin 2.6L, Globulin 3.5, Albumin/Globulin Ratio 0.7L Height (Feet): 5 Height (Inches): 0.00 Weight (Pounds): 114 Objective WDWN NCAT supple CTA RRR abd flat, wound ok, (+) RICARDO no edema Evan Krause MD Feb 15, 2018 18:13
[2018-02-15 20:00] VITALS: BP 107/58
[2018-02-15] MEDS: HYDROcodone/Acetamin 10/325 tab ORAL PRN (20:23)
[2018-02-16] VITALS: BP 93/56
[2018-02-16] MEDS: D5 1/2NS 1,000 ML IV SCH ×3 (01:42→20:54)
[2018-02-16] MEDS: HYDROcodone/Acetamin 10/325 tab ORAL PRN (01:57)
[2018-02-16 04:00] VITALS: BP 94/55
[2018-02-16 06:58] LABS: ANION GAP 4 mmol/L (5-15); BLOOD UREA NITROGEN 4 mg/dL (7-18); CARBON DIOXIDE 28 MMOL/L (21-32); CHLORIDE 107 MMOL/L (98-107); CREATININE 0.7 MG/DL (0.55-1.30); POTASSIUM 3.6 MMOL/L (3.5-5.1); SODIUM 139 MMOL/L (136-145)
[2018-02-16 07:00] LABS: BASOPHILS % (AUTO) 0.4 % (0.0-2.0); EOSINOPHILS % (AUTO) 0.7 % (0.0-3.0); HEMATOCRIT 33.1 % (37.0-47.0); HEMOGLOBIN 11.2 G/DL (12.0-16.0); LYMPHOCYTES % (AUTO) 15.4 % (20.0-45.0); MEAN CORPUSCULAR VOLUME 88 FL (80-99); MONOCYTES % (AUTO) 4.3 % (1.0-10.0); NEUTROPHILS % (AUTO) 79.3 % (45.0-75.0); PLATELET COUNT 156 K/UL (150-450); RED BLOOD COUNT 3.76 M/UL (4.20-5.40); WHITE BLOOD COUNT 11.3 K/UL (4.8-10.8)
[2018-02-16 08:00] VITALS: BP 92/53
[2018-02-16] MEDS ORDERED: D5 1/2NS 1000ml IV ONE (08:42)
[2018-02-16] MEDS: Pantoprazole Inj IV SCH (09:34)
[2018-02-16] MEDS: Docusate 100mg cap ORAL SCH ×2 (09:35→17:55)
[2018-02-16] MEDS: cefTRIAXone 1 GM in D5W 55 ML IVPB SCH (09:35)
[2018-02-16] MEDS: Heparin 5000 units/ml inj SUBQ SCH ×2 (09:37→20:55)
--- NOTE | 2018-02-16 11:02 | General Progress Note ---
Assessment/Plan Assessment/Plan Assessment Acute perforated appy Recommendations post op care abx diet per surgery Subjective Allergies: Coded Allergies: No Known Allergies (Unverified , 02/13/18) Subjective Feels OK post op wound pain Objective Last 24 Hour Vital Signs Date Time Temp Pulse Resp B/P (MAP) Pulse Ox O2 Delivery O2 Flow Rate FiO2 02/16/18 08:00 97.8 79 16 92/53 (66) 98 02/16/18 04:00 97.9 79 19 94/55 (68) 98 02/16/18 00:00 97.9 79 20 93/56 (68) 95 02/15/18 21:00 Nasal Cannula 2.0 02/15/18 20:00 97.7 96 20 107/58 (74) 95 02/15/18 15:52 98.4 87 16 97/53 (68) 99 02/15/18 12:00 97.9 75 20 96/57 (70) 97 Intake and Output 02/15/18 02/16/18 18:59 06:59 Intake Total 1125 ml 1110.0 ml Output Total 20 ml 12 ml Balance 1105 ml 1098.0 ml Intake Oral 240 ml 160 ml IV Total 885 ml 950.0 ml Drainage Total 20 ml 12 ml # Voids 2 3 Laboratory Tests 02/16/18 05:15: White Blood Count 11.3H, Red Blood Count 3.76L, Hemoglobin 11.2L, Hematocrit 33.1L, Mean Corpuscular Volume 88, Mean Corpuscular Hemoglobin 29.8, Mean Corpuscular Hemoglobin Concent 33.9, Red Cell Distribution Width 11.0L, Platelet Count 156, Mean Platelet Volume 8.5, Neutrophils (%) (Auto) 79.3H, Lymphocytes (%) (Auto) 15.4L, Monocytes (%) (Auto) 4.3, Eosinophils (%) (Auto) 0.7, Basophils (%) (Auto) 0.4, Sodium Level 139, Potassium Level 3.6, Chloride Level 107, Carbon Dioxide Level 28, Anion Gap 4L, Blood Urea Nitrogen 4L, Creatinine 0.7, Estimat Glomerular Filtration Rate > 60, Glucose Level 113H, Calcium Level 8.0L Height (Feet): 5 Height (Inches): 0.00 Weight (Pounds): 114 Objective WDWN NCAT supple CTA RRR abd flat, wound ok, (+) RICARDO no edema Evan Krause MD Feb 16, 2018 11:02
[2018-02-16 12:00] VITALS: BP 106/58
--- NOTE | 2018-02-16 12:39 | General Progress Note ---
Progress Note Progress Note Surgery: no acute events. improving. pain improving. no fever or chills. intermittent nausea. no emesis. tolerating only clears exam benign. drain serous and min output labs improving -diet as tolerated -cont abx -trend labs -will plan to d/c drain tomorrow. possible d/c home Ti Elam Feb 16, 2018 12:39
[2018-02-16] MEDS: Metoclopramide 10mg/2ml Inj IVP PRN (14:34)
--- NOTE | 2018-02-16 15:38 | Internal Med Progress Note ---
Subjective Date of Service: Feb 16, 2018 Physician Name Nicolas Ayala Attending Physician Jak Siu MD Current Medications Medications (Trade) Dose Ordered Sig/Marina Route PRN Reason Start Time Stop Time Status Last Admin Dose Admin Acetaminophen (Tylenol) 650 mg Q6H PRN ORAL Mild Pain (Pain Scale 1-3) 02/14/18 18:00 03/16/18 17:59 02/16/18 15:00 Acetaminophen/ Hydrocodone Bitart ([place] 10/325) 1 tab Q4H PRN ORAL Severe Pain (Pain Scale 7-10) 02/14/18 18:00 02/21/18 17:59 02/16/18 01:57 Acetaminophen/ Hydrocodone Bitart ([place] 5/325) 1 tab Q4H PRN ORAL Moderate Pain (Pain Scale 4-6) 02/14/18 18:00 02/21/18 17:59 Al Hydroxide/Mg Hydroxide (Mylanta) 15 ml Q6H PRN ORAL DYSPEPSIA 02/14/18 20:00 03/16/18 19:59 02/16/18 14:59 Ceftriaxone Sodium 1 gm/ Dextrose 55 ml @ 110 mls/hr Q24H IVPB 02/14/18 09:00 02/21/18 08:59 02/16/18 09:35 Dextrose (Dextrose 50%) 25 ml Q30M PRN IV Hypoglycemia 02/13/18 20:30 03/15/18 20:29 Dextrose (Dextrose 50%) 50 ml Q30M PRN IV Hypoglycemia 02/13/18 20:30 03/15/18 20:29 Dextrose/Sodium Chloride 1,000 ml @ 75 mls/hr [id number] IV 02/13/18 20:20 03/15/18 20:19 02/16/18 01:42 Diphenhydramine HCl (Benadryl) 25 mg Q8H PRN ORAL Itching/Pruritis 02/14/18 18:00 03/16/18 17:59 Docusate Sodium (Colace) 100 mg TWICE A DAY ORAL 02/14/18 20:00 03/16/18 19:59 02/16/18 09:35 Heparin Sodium (Porcine) (Heparin 5000 units/ml) 5,000 units EVERY 12 HOURS SUBQ 02/13/18 21:00 03/15/18 20:59 02/16/18 09:37 Hydromorphone HCl (Dilaudid) 0.5 mg Q3H PRN IVP Pain Score 1-3 02/14/18 20:00 02/21/18 19:59 Hydromorphone HCl (Dilaudid) 1 mg Q3H PRN IVP pain score 4-6 02/14/18 20:00 02/21/18 19:59 02/15/18 06:08 Hydromorphone HCl (Dilaudid) 2 mg Q3H PRN IVP pain score 7-10 02/14/18 20:00 02/21/18 19:59 02/15/18 02:27 Iopamidol (Isovue-300 100ml) 100 ml NOW PRN INJ Radiology Procedure 02/14/18 12:00 02/16/18 23:59 Ketorolac Tromethamine (Toradol 30mg) 15 mg Q6H PRN IV Breakthrough Pain 02/14/18 20:00 02/19/18 19:59 Ketorolac Tromethamine (Toradol 30mg) 30 mg Q8H PRN IV Moderate Pain 4 to 6 02/13/18 21:30 02/18/18 21:29 02/14/18 12:15 Lorazepam (Ativan 2mg/ml 1ml) 1 mg Q4H PRN IV agitation 02/13/18 20:30 02/20/18 20:29 Magnesium Hydroxide (Mom) 30 ml BIDPRN PRN ORAL Constipation 02/14/18 18:00 03/16/18 17:59 Metoclopramide HCl (Reglan) 10 mg Q6H PRN IVP severe nausea 02/13/18 20:30 03/15/18 20:29 02/16/18 14:34 Metronidazole 100 ml @ 100 mls/hr Q8HR IVPB 02/14/18 16:00 02/21/18 15:59 02/16/18 14:34 Nitroglycerin (Ntg) 0.4 mg Q5M X 3 DOSES PRN SL Prn Chest Pain 02/13/18 20:30 03/15/18 20:29 Ondansetron HCl (Zofran) 4 mg Q6H PRN IVP Nausea & Vomiting 02/14/18 20:00 03/16/18 19:59 02/16/18 09:34 Pantoprazole (Protonix) 40 mg DAILY IV 02/14/18 09:00 03/16/18 08:59 02/16/18 09:34 Polyethylene Glycol (Miralax) 17 gm HSPRN PRN ORAL Constipation 02/13/18 20:30 03/15/18 20:29 Promethazine HCl (Phenergan) 12.5 mg Q6H PRN IM refractory nausea/vomiting 02/13/18 21:30 03/15/18 21:29 Temazepam (Restoril) 7.5 mg DAILYPRN PRN ORAL Insomnia 02/14/18 18:00 02/21/18 17:59 Allergies: Coded Allergies: No Known Allergies (Unverified , 02/13/18) ROS Limited/Unobtainable: No Constitutional: Reports: no symptoms HEENT: Reports: no symptoms Cardiovascular: Reports: no symptoms Respiratory: Reports: no symptoms Gastrointestinal/Abdominal: Reports: no symptoms Genitourinary: Reports: no symptoms Neurologic/Psychiatric: Reports: no symptoms Subjective 27 YO F admitted with fever and abdominal pain. S/P appendectomy 02/14/18. Cover for Int Med-Dr Siu. Objective Last Vital Signs Date Time Temp Pulse Resp B/P (MAP) Pulse Ox O2 Delivery O2 Flow Rate FiO2 02/16/18 12:00 98.9 80 20 106/58 (74) 99 02/16/18 09:00 Nasal Cannula 2.0 Laboratory Tests Test 02/16/18 05:15 White Blood Count 11.3 K/UL (4.8-10.8) H Red Blood Count 3.76 M/UL (4.20-5.40) L Hemoglobin 11.2 G/DL (12.0-16.0) L Hematocrit 33.1 % (37.0-47.0) L Mean Corpuscular Volume 88 FL (80-99) Mean Corpuscular Hemoglobin 29.8 PG (27.0-31.0) Mean Corpuscular Hemoglobin Concent 33.9 G/DL (32.0-36.0) Red Cell Distribution Width 11.0 % (11.6-14.8) L Platelet Count 156 K/UL (150-450) Mean Platelet Volume 8.5 FL (6.5-10.1) Neutrophils (%) (Auto) 79.3 % (45.0-75.0) H Lymphocytes (%) (Auto) 15.4 % (20.0-45.0) L Monocytes (%) (Auto) 4.3 % (1.0-10.0) Eosinophils (%) (Auto) 0.7 % (0.0-3.0) Basophils (%) (Auto) 0.4 % (0.0-2.0) Sodium Level 139 MMOL/L (136-145) Potassium Level 3.6 MMOL/L (3.5-5.1) Chloride Level 107 MMOL/L (98-107) Carbon Dioxide Level 28 MMOL/L (21-32) Anion Gap 4 mmol/L (5-15) L Blood Urea Nitrogen 4 mg/dL (7-18) L Creatinine 0.7 MG/DL (0.55-1.30) Estimat Glomerular Filtration Rate > 60 mL/min (>60) Glucose Level 113 MG/DL (74-106) H Calcium Level 8.0 MG/DL (8.5-10.1) L Microbiology Date/Time Source Procedure Growth Status 02/14/18 07:15 Blood Blood Culture - Preliminary NO GROWTH AFTER 24 HOURS Resulted 02/14/18 07:05 Blood Blood Culture - Preliminary NO GROWTH AFTER 24 HOURS Resulted 02/14/18 17:26 Peritoneal Fluid Gram Stain - Final Resulted 02/14/18 17:26 Aerobic Culture - Preliminary Gram Negative Bacillus 1 Resulted Intake and Output 02/15/18 02/16/18 19:00 07:00 Intake Total 1200 ml 1035.0 ml Output Total 20 ml 12 ml Balance 1180 ml 1023.0 ml Intake Oral 240 ml 160 ml IV Total 960 ml 875.0 ml Drainage Total 20 ml 12 ml # Voids 2 3 Objective General Appearance: WD/WN, no apparent distress, alert EENT: PERRL/EOMI, normal ENT inspection, TMs normal Neck: non-tender, normal alignment, supple Cardiovascular: normal peripheral pulses, normal rate, regular rhythm, no gallop/murmur, no JVD Respiratory/Chest: chest wall non-tender, lungs clear, normal breath sounds, no respiratory distress, no accessory muscle use Abdomen: no organomegaly, no mass, decreased bowel sounds, guarding, tender Extremities: normal range of motion, non-tender 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 (2) Fever (3) Leukocytosis Assessment & Plan: Secondary to appendicitis. Continue rocephin and flagy. per ID (4) Abdominal pain Nicolas Ayala MD Feb 16, 2018 15:38
[2018-02-16 16:00] VITALS: BP 95/62
[2018-02-16 20:00] VITALS: BP 100/59
[2018-02-17] VITALS: BP 110/70
[2018-02-17 04:00] VITALS: BP 111/68
[2018-02-17 08:00] VITALS: BP 114/69
[2018-02-17] MEDS: Pantoprazole Inj IV SCH (09:19)
[2018-02-17] MEDS: Metoclopramide 10mg/2ml Inj IVP PRN (09:19)
[2018-02-17] MEDS: Docusate 100mg cap ORAL SCH ×2 (09:19→17:14)
[2018-02-17] MEDS: Heparin 5000 units/ml inj SUBQ SCH (09:21)
[2018-02-17] MEDS: cefTRIAXone 1 GM in D5W 55 ML IVPB SCH (09:23)
--- NOTE | 2018-02-17 11:49 | GI Progress Note ---
Assessment/Plan Problems: (1) Appendicitis, acute ICD Codes: K35.80 - Unspecified acute appendicitis SNOMED: 58689447 (2) Abdominal pain ICD Codes: R10.9 - Unspecified abdominal pain SNOMED: [id number] Qualifiers: Qualified Codes: R10.84 - Generalized abdominal pain Status: stable Status Narrative Discussed with Dr. Mirza. Assessment/Plan Assessment Acute perforated appy Recommendations post op care abx diet per surgery pain mgmt The patient was seen and examined at bedside and all new and available data was reviewed in the patients chart. I agree with the above findings, impression and plan. (Patient seen earlier today. Signature stamp does not reflect patient encounter time.). - Fidel Mirza MD Subjective Gastrointestinal/Abdominal: Reports: abdominal pain - improved Objective Last 24 Hour Vital Signs Date Time Temp Pulse Resp B/P (MAP) Pulse Ox O2 Delivery O2 Flow Rate FiO2 02/17/18 08:00 97.6 71 18 114/69 (84) 99 02/17/18 04:00 98.2 71 18 111/68 (82) 98 02/17/18 00:00 98.4 88 20 110/70 (83) 98 02/16/18 21:00 Nasal Cannula 2.0 02/16/18 20:00 98.4 70 20 100/59 (73) 96 02/16/18 16:00 99.6 78 16 95/62 (73) 99 02/16/18 15:30 99.6 02/16/18 12:00 98.9 80 20 106/58 (74) 99 Intake and Output 02/16/18 02/17/18 19:00 07:00 Intake Total 1070 ml 1665 ml Output Total 45 ml Balance 1070 ml 1620 ml Intake Oral 240 ml 240 ml Free Water 0 ml IV Total 830 ml 1425 ml Tube Feeding 0 ml Blood Product 0 ml Other 0 ml Output Stool Total 3 ml Drainage Total 37 ml Estimated Blood Loss 5 ml # Voids 2 1 Height (Feet): 5 Height (Inches): 0.00 Weight (Pounds): 114 General Appearance: WD/WN, no apparent distress, alert Cardiovascular: normal rate Respiratory/Chest: normal breath sounds, no respiratory distress Abdominal Exam: normal bowel sounds, non tender, soft Extremities: normal range of motion, non-tender Kevon Dexter NAILER MACHINE Feb 17, 2018 11:49
--- NOTE | 2018-02-17 11:56 | Infectious Diseases Prog Note ---
Assessment/Plan Assessment/Plan A: The patient is a 27-year-old female with: Fever, SP Leukocytosis, improving Appendicitis wnd Cx: GNR x 2 SP Lap Appendectomy 02/14/18 PLAN: - We will continue the patient on Rocephin and Flagyl # 4 /6 - Monitor CBC. - Monitor BMP. - Monitor blood culture and OR cultures Subjective Allergies: Coded Allergies: No Known Allergies (Unverified , 02/13/18) Subjective afebrile feeling better Objective Vital Signs Last 24 Hour Vital Signs Date Time Temp Pulse Resp B/P (MAP) Pulse Ox O2 Delivery O2 Flow Rate FiO2 02/17/18 08:00 97.6 71 18 114/69 (84) 99 02/17/18 04:00 98.2 71 18 111/68 (82) 98 02/17/18 00:00 98.4 88 20 110/70 (83) 98 02/16/18 21:00 Nasal Cannula 2.0 02/16/18 20:00 98.4 70 20 100/59 (73) 96 02/16/18 16:00 99.6 78 16 95/62 (73) 99 02/16/18 15:30 99.6 02/16/18 12:00 98.9 80 20 106/58 (74) 99 Height (Feet): 5 Height (Inches): 0.00 Weight (Pounds): 114 HEENT: anicteric Respiratory/Chest: no respiratory distress Cardiovascular: regularly irregular Abdomen: no organomegaly Microbiology Date/Time Source Procedure Growth Status 02/14/18 17:26 Peritoneal Fluid Gram Stain - Final Resulted 02/14/18 17:26 Aerobic Culture - Preliminary Gram Negative Bacillus 1 Gram Negative Bacillus 2 Resulted Current Medications Medications (Trade) Dose Ordered Sig/Marina Route PRN Reason Start Time Stop Time Status Last Admin Dose Admin Acetaminophen (Tylenol) 650 mg Q6H PRN ORAL Mild Pain (Pain Scale 1-3) 02/14/18 18:00 03/16/18 17:59 02/16/18 15:00 Acetaminophen/ Hydrocodone Bitart ([place] 10/325) 1 tab Q4H PRN ORAL Severe Pain (Pain Scale 7-10) 02/14/18 18:00 02/21/18 17:59 02/16/18 01:57 Acetaminophen/ Hydrocodone Bitart ([place] 5/325) 1 tab Q4H PRN ORAL Moderate Pain (Pain Scale 4-6) 02/14/18 18:00 02/21/18 17:59 Al Hydroxide/Mg Hydroxide (Mylanta) 15 ml Q6H PRN ORAL DYSPEPSIA 02/14/18 20:00 03/16/18 19:59 02/17/18 09:54 Ceftriaxone Sodium 1 gm/ Dextrose 55 ml @ 110 mls/hr Q24H IVPB 02/14/18 09:00 02/21/18 08:59 02/17/18 09:23 Dextrose (Dextrose 50%) 25 ml Q30M PRN IV Hypoglycemia 02/13/18 20:30 03/15/18 20:29 Dextrose (Dextrose 50%) 50 ml Q30M PRN IV Hypoglycemia 02/13/18 20:30 03/15/18 20:29 Dextrose/Sodium Chloride 1,000 ml @ 75 mls/hr [id number] IV 02/13/18 20:20 03/15/18 20:19 02/16/18 20:54 Diphenhydramine HCl (Benadryl) 25 mg Q8H PRN ORAL Itching/Pruritis 02/14/18 18:00 03/16/18 17:59 Docusate Sodium (Colace) 100 mg TWICE A DAY ORAL 02/14/18 20:00 03/16/18 19:59 02/17/18 09:19 Heparin Sodium (Porcine) (Heparin 5000 units/ml) 5,000 units EVERY 12 HOURS SUBQ 02/13/18 21:00 03/15/18 20:59 02/17/18 09:21 Hydromorphone HCl (Dilaudid) 0.5 mg Q3H PRN IVP Pain Score 1-3 02/14/18 20:00 02/21/18 19:59 Hydromorphone HCl (Dilaudid) 1 mg Q3H PRN IVP pain score 4-6 02/14/18 20:00 02/21/18 19:59 02/15/18 06:08 Hydromorphone HCl (Dilaudid) 2 mg Q3H PRN IVP pain score 7-10 02/14/18 20:00 02/21/18 19:59 02/15/18 02:27 Ketorolac Tromethamine (Toradol 30mg) 15 mg Q6H PRN IV Breakthrough Pain 02/14/18 20:00 02/19/18 19:59 Ketorolac Tromethamine (Toradol 30mg) 30 mg Q8H PRN IV Moderate Pain 4 to 6 02/13/18 21:30 02/18/18 21:29 02/14/18 12:15 Lorazepam (Ativan 2mg/ml 1ml) 1 mg Q4H PRN IV agitation 02/13/18 20:30 02/20/18 20:29 Magnesium Hydroxide (Mom) 30 ml BIDPRN PRN ORAL Constipation 02/14/18 18:00 03/16/18 17:59 Metoclopramide HCl (Reglan) 10 mg Q6H PRN IVP severe nausea 02/13/18 20:30 03/15/18 20:29 02/17/18 09:19 Metronidazole 100 ml @ 100 mls/hr Q8HR IVPB 02/14/18 16:00 02/21/18 15:59 02/17/18 05:19 Nitroglycerin (Ntg) 0.4 mg Q5M X 3 DOSES PRN SL Prn Chest Pain 02/13/18 20:30 03/15/18 20:29 Ondansetron HCl (Zofran) 4 mg Q6H PRN IVP Nausea & Vomiting 02/14/18 20:00 03/16/18 19:59 02/16/18 20:54 Pantoprazole (Protonix) 40 mg DAILY IV 02/14/18 09:00 03/16/18 08:59 02/17/18 09:19 Polyethylene Glycol (Miralax) 17 gm HSPRN PRN ORAL Constipation 02/13/18 20:30 03/15/18 20:29 Promethazine HCl (Phenergan) 12.5 mg Q6H PRN IM refractory nausea/vomiting 02/13/18 21:30 03/15/18 21:29 Temazepam (Restoril) 7.5 mg DAILYPRN PRN ORAL Insomnia 02/14/18 18:00 02/21/18 17:59 Dani Huber MD Feb 17, 2018 11:56
[2018-02-17 12:00] VITALS: BP 118/71
[2018-02-17] MEDS ORDERED: METRONIDAZOLE500 MG ORAL (12:38)
[2018-02-17] MEDS ORDERED: LEVAQUIN500 MG ORAL (12:38)
--- NOTE | 2018-02-17 13:00 | General Progress Note ---
Progress Note Progress Note Surgery: doing much better. pain improved. no f/c. comfortable. tolerating diet + flatus. ambulatory drain serous and minimal wounds c/d/i drain removed rx written d/c home today f/u 1-2 weeks Ti Elam Feb 17, 2018 13:00
[2018-02-17] MEDS: D5 1/2NS 1,000 ML IV SCH (14:40)
[2018-02-17 16:00] VITALS: BP 122/74
[2018-02-17] MEDS ORDERED: DOCUSATE SODIU100 M2 ORAL (17:40)
[2018-02-17] MEDS ORDERED: HYDROCODON-ACE1 EA16 ORAL (17:41)
--- NOTE | 2018-02-17 18:06 | Internal Med Progress Note ---
Subjective Date of Service: Feb 17, 2018 Physician Name Nicolas Ayala Attending Physician Jak Siu MD Current Medications Medications (Trade) Dose Ordered Sig/Marina Route PRN Reason Start Time Stop Time Status Last Admin Dose Admin Acetaminophen (Tylenol) 650 mg Q6H PRN ORAL Mild Pain (Pain Scale 1-3) 02/14/18 18:00 03/16/18 17:59 02/16/18 15:00 Acetaminophen/ Hydrocodone Bitart ([place] 10/325) 1 tab Q4H PRN ORAL Severe Pain (Pain Scale 7-10) 02/14/18 18:00 02/21/18 17:59 02/16/18 01:57 Acetaminophen/ Hydrocodone Bitart ([place] 5/325) 1 tab Q4H PRN ORAL Moderate Pain (Pain Scale 4-6) 02/14/18 18:00 02/21/18 17:59 Al Hydroxide/Mg Hydroxide (Mylanta) 15 ml Q6H PRN ORAL DYSPEPSIA 02/14/18 20:00 03/16/18 19:59 02/17/18 09:54 Ceftriaxone Sodium 1 gm/ Dextrose 55 ml @ 110 mls/hr Q24H IVPB 02/14/18 09:00 02/21/18 08:59 02/17/18 09:23 Dextrose (Dextrose 50%) 25 ml Q30M PRN IV Hypoglycemia 02/13/18 20:30 03/15/18 20:29 Dextrose (Dextrose 50%) 50 ml Q30M PRN IV Hypoglycemia 02/13/18 20:30 03/15/18 20:29 Dextrose/Sodium Chloride 1,000 ml @ 75 mls/hr [id number] IV 02/13/18 20:20 03/15/18 20:19 02/17/18 14:40 Diphenhydramine HCl (Benadryl) 25 mg Q8H PRN ORAL Itching/Pruritis 02/14/18 18:00 03/16/18 17:59 Docusate Sodium (Colace) 100 mg TWICE A DAY ORAL 02/14/18 20:00 03/16/18 19:59 02/17/18 17:14 Heparin Sodium (Porcine) (Heparin 5000 units/ml) 5,000 units EVERY 12 HOURS SUBQ 02/13/18 21:00 03/15/18 20:59 02/17/18 09:21 Hydromorphone HCl (Dilaudid) 0.5 mg Q3H PRN IVP Pain Score 1-3 02/14/18 20:00 02/21/18 19:59 Hydromorphone HCl (Dilaudid) 1 mg Q3H PRN IVP pain score 4-6 02/14/18 20:00 02/21/18 19:59 02/15/18 06:08 Hydromorphone HCl (Dilaudid) 2 mg Q3H PRN IVP pain score 7-10 02/14/18 20:00 02/21/18 19:59 02/15/18 02:27 Ketorolac Tromethamine (Toradol 30mg) 15 mg Q6H PRN IV Breakthrough Pain 02/14/18 20:00 02/19/18 19:59 Ketorolac Tromethamine (Toradol 30mg) 30 mg Q8H PRN IV Moderate Pain 4 to 6 02/13/18 21:30 02/18/18 21:29 02/14/18 12:15 Lorazepam (Ativan 2mg/ml 1ml) 1 mg Q4H PRN IV agitation 02/13/18 20:30 02/20/18 20:29 Magnesium Hydroxide (Mom) 30 ml BIDPRN PRN ORAL Constipation 02/14/18 18:00 03/16/18 17:59 Metoclopramide HCl (Reglan) 10 mg Q6H PRN IVP severe nausea 02/13/18 20:30 03/15/18 20:29 02/17/18 09:19 Metronidazole 100 ml @ 100 mls/hr Q8HR IVPB 02/14/18 16:00 02/21/18 15:59 02/17/18 14:40 Nitroglycerin (Ntg) 0.4 mg Q5M X 3 DOSES PRN SL Prn Chest Pain 02/13/18 20:30 03/15/18 20:29 Ondansetron HCl (Zofran) 4 mg Q6H PRN IVP Nausea & Vomiting 02/14/18 20:00 03/16/18 19:59 02/17/18 17:14 Pantoprazole (Protonix) 40 mg DAILY IV 02/14/18 09:00 03/16/18 08:59 02/17/18 09:19 Polyethylene Glycol (Miralax) 17 gm HSPRN PRN ORAL Constipation 02/13/18 20:30 03/15/18 20:29 Promethazine HCl (Phenergan) 12.5 mg Q6H PRN IM refractory nausea/vomiting 02/13/18 21:30 03/15/18 21:29 Temazepam (Restoril) 7.5 mg DAILYPRN PRN ORAL Insomnia 02/14/18 18:00 02/21/18 17:59 Allergies: Coded Allergies: No Known Allergies (Unverified , 02/13/18) ROS Limited/Unobtainable: No Constitutional: Reports: no symptoms HEENT: Reports: no symptoms Cardiovascular: Reports: no symptoms Respiratory: Reports: no symptoms Gastrointestinal/Abdominal: Reports: abdominal pain Genitourinary: Reports: no symptoms Neurologic/Psychiatric: Reports: no symptoms Subjective 27 YO F admitted with fever and abdominal pain. S/P appendectomy 02/14/18. Cover for [facility]-Dr Siu. Objective Last Vital Signs Date Time Temp Pulse Resp B/P (MAP) Pulse Ox O2 Delivery O2 Flow Rate FiO2 02/17/18 16:00 98.0 77 18 122/74 (90) 98 02/17/18 09:00 Room Air 02/16/18 21:00 2.0 Intake and Output 02/16/18 02/17/18 18:59 06:59 Intake Total 1070 ml 1665 ml Output Total 45 ml Balance 1070 ml 1620 ml Intake Oral 240 ml 240 ml Free Water 0 ml IV Total 830 ml 1425 ml Tube Feeding 0 ml Blood Product 0 ml Other 0 ml Output Stool Total 3 ml Drainage Total 37 ml Estimated Blood Loss 5 ml # Voids 2 1 Objective General Appearance: WD/WN, no apparent distress, alert EENT: PERRL/EOMI, normal ENT inspection, TMs normal Neck: non-tender, normal alignment, supple Cardiovascular: normal peripheral pulses, normal rate, regular rhythm, no gallop/murmur, no JVD Respiratory/Chest: chest wall non-tender, lungs clear, normal breath sounds, no respiratory distress, no accessory muscle use Abdomen: no organomegaly, no mass, decreased bowel sounds, guarding, tender Extremities: normal range of motion, non-tender Neurologic: exerciser horse II-XII grossly normal, no motor/sensory deficits Skin: normal pigmentation, warm/dry Assessment/Plan Problem List: (1) Appendicitis, acute Assessment & Plan: S/P laparoscopic appendectomy 02/14/18-see surgery note. (2) Fever (3) Leukocytosis Assessment & Plan: Secondary to appendicitis. Continue rocephin and flagy. per ID (4) Abdominal pain Assessment/Plan D/C home today per surgery Nicolas Ayala MD Feb 17, 2018 18:06
--- NOTE | 2018-02-18 10:40 | Discharge Summary ---
Discharge Summary Discharge Summary _ DATE OF ADMISSION: 02/13/2018 DATE OF DISCHARGE: 02/17/2018 REASON FOR ADMISSION: 27 years old female without significant past medical history ,presented to emergency room complaining of right lower quadrant abdominal pain. Upon evaluation patient noted to have leukocytosis with WBC 15.9. Hemoglobin and hematocrit were stable. Urine test was negative. AST 42. Abdominal ultrasound revealed cholelithiasis without evidence of cholecystitis. Abdominal x-ray was negative. Urine toxicology screen was positive for opiates and marijuana. Patient was admitted with diagnoses of abdominal pain , possible acute cholecystitis versus appendicitis. CONSULTANTS: pulmonary/entry level sales consultant Dr. Pablo ID specialist Claude GI specialist Dr. Mirza surgery Dr. Elam [facility] COURSE: Patient admitted to medical surgical floor. Patient started on the IV fluids and empiric antibiotics. Patient was kept nothing by mouth. The next day patient developed fever and leukocytosis with trending up to 23.9. CT of the abdomen and pelvis revealed acute appendicitis without abscess. Patient subsequently undergone laparoscopic appendectomy . During the surgery found perforated appendicitis . Drain was left in place. Patient initially was NPO and then slowly started on liquid diet and advanced as tolerated. Antiemetics provided as needed. Pain management was addressed , and pain was controlled. Drain output was closely monitored Drain was discontinued prior to discharge by surgeon at the bedside. Antibiotic provided as per ID specialist recommendations. Peritoneal fluid culture was positive for Proteus and Pseudomonas. Blood culture were negative. Pathology results still pending. Patient clinically improved; pain controlled, tolerated, diet leukocytosis down to 11.3, afebrile. Surgeon cleared patient for discharge . Discharge instruction provided. Patient will need to complete the course of oral antibiotics at home. Prescription provided. FINAL DIAGNOSES: Acute perforated appendicitis Status post laparoscopic appendectomy Leukocytosis- trending down DISCHARGE MEDICATIONS: See Medication Reconciliation list. DISCHARGE INSTRUCTIONS: Patient was discharged home. Outpatient follow-up with surgeon in one to two weeks I have been assigned to dictate discharge summary for this account. I was not involved in the patient's management. Prema Denise PROGRAM WRITER Feb 18, 2018 10:40
== END 2018-02-17 18:39 | disposition home or self-care (01) | DRG 340 ==
LOC: EMR 13:35 → 4E 18:10 → EDBEDREQ 18:23 → 4E 20:45
PROC: 0DTJ4ZZ Resection of Appendix, Percutaneous Endoscopic Approach (ICD-10-PCS; principal; 2018-02-14 16:00)
DX: K35.32 Acute appendicitis with perforation, localized peritonitis, and gangrene, without abscess (principal); K80.20 Calculus of gallbladder without cholecystitis without obstruction
CPT/HCPCS: 36415; 71045; 74018; 74177; 76700; 80048; 80053; 80307; 81003; 81025; 82150; 82248; 83690; 83735; 84100; 84703; 85007; 85025; 85610; 85651; 85730; 86140; 86850; 86900; 86901; 87040; 87070; 87181; 87205; 94003; 94150; 96374; 96375; 99285; J2405; J2710; J2765; J8499